=== PATIENT | male | born 1955 | race Caucasian/White ===

== ENCOUNTER 2018-11-18 13:18 | Emergency (ER) | payer BC ==
[2018-11-18 13:24] VITALS: TEMP 97.7
[2018-11-18] MEDS ORDERED: KETOROLAC 60 MG/2 ML VIAL IM STA (13:54)
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
--- NOTE | 2018-11-18 14:43 | XR ---
EXAMINATION TYPE: XR thoracic spine complete DATE OF EXAM: 11/18/2018 COMPARISON: 11/30/2017 HISTORY: Back pain TECHNIQUE: 4 views FINDINGS: There is osteopenia. There is some compression deformity of multiple thoracic vertebra. The re is 50% wedging of L1. There is 30% wedging of T12. There is 30% wedging of T9 and 50% wedging T8 a nd T7. There is slight loss of height of other thoracic vertebra as well. There is 30% wedging of T4. There is no paraspinal mass. Posterior elements are intact. IMPRESSION: Multiple osteoporotic type compression fractures show significant progression compared to old chest x-ray.
--- NOTE | 2018-11-18 14:46 | XR ---
EXAMINATION TYPE: XR chest 2V DATE OF EXAM: 11/18/2018 COMPARISON: 11/30/2017 HISTORY: Altered mental status TECHNIQUE: Frontal and lateral views of the chest are obtained. FINDINGS: There is no heart failure nor confluent pneumonic infiltrate. There is a 1 cm irregular po melvin marginated density in the lateral right upper lobe. There are no hilar masses. Costophrenic angl es are clear. There are multiple thoracic compression fractures. These show progression compared to o ld exam. IMPRESSION: Possible new right upper lobe nodule compared to old exam. Thoracic compression fracture s.
[2018-11-18 15:35] VITALS: BP 138/82; PULSE 72; RESP 18
== END 2018-11-18 15:33 | disposition home or self-care (01) ==
LOC: EC 13:18
DX: S22.009A Unspecified fracture of unspecified thoracic vertebra, initial encounter for closed fracture (principal); F17.200 Nicotine dependence, unspecified, uncomplicated; Z86.73 Personal history of transient ischemic attack (TIA), and cerebral infarction without residual deficits
CPT/HCPCS: 72072; 71046; 99284; 96372; J1885

== ENCOUNTER 2021-08-16 19:41 | Emergency (ER) | payer MEDICARE, OTHER ==
[2021-08-16 19:50] VITALS: RESP 18; TEMP 99.1
[2021-08-16] MEDS ORDERED: LORazepam 2 MG/ML INJ IV STA (20:14)
[2021-08-16] MEDS ORDERED: SODIUM CHLORIDE 0.9% 500 ML 500 ML IV STA (20:14)
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
[2021-08-16 20:40] LABS: Basophils # (A) 0.1 k/uL (0-0.2); Basophils % (A) 2 %; Eosinophils # (A) 0.1 k/uL (0-0.7); Eosinophils % (A) 1 %; HCT 52.8 % (39.0-53.0); Lymphocytes # (A) 0.9 k/uL (1.0-4.8); Lymphocytes % (A) 15 %; MCH 31.7 pg (25.0-35.0); MCHC 32.1 g/dL (31.0-37.0); MCV 98.7 fL (80.0-100.0); Mean Platelet Volume 9.2; Monocytes # (A) 0.3 k/uL (0-1.0); Monocytes % (A) 5 %; Neutrophils # (A) 4.3 k/uL (1.3-7.7); Neutrophils % (A) 73 %; Platelet Count 198 k/uL (150-450); RBC 5.35 m/uL (4.30-5.90); WBC 5.9 k/uL (3.8-10.6)
[2021-08-16 20:51] LABS: AST 30 U/L (17-59); African American GFR (CKD) >90 (>60 ml/min/1.73 sqM); Albumin 4.2 g/dL (3.5-5.0); Alcohol <10 mg/dL; Alkaline Phosphatase 43 U/L (38-126); Anion Gap 14 mmol/L; Blood Urea Nitrogen 22 mg/dL (9-20); Calcium 8.6 mg/dL (8.4-10.2); Carbon Dioxide 17 mmol/L (22-30); Chloride 101 mmol/L (98-107); Glucose 130 mg/dL (74-99); Magnesium 2.3 mg/dL (1.6-2.3); Non-African American GFR(CKD) >90 (>60 ml/min/1.73 sqM); Potassium 4.1 mmol/L (3.5-5.1); Sodium 132 mmol/L (137-145); Total Bilirubin 0.6 mg/dL (0.2-1.3); Total Protein 6.7 g/dL (6.3-8.2)
[2021-08-16 20:56] LABS: ALT 32 U/L (4-49)
--- NOTE | 2021-08-16 21:23 | XR ---
EXAMINATION TYPE: XR chest 1V portable DATE OF EXAM: 08/16/2021 8:51 PM COMPARISON: Chest radiographs from 02/14/2019. TECHNIQUE: XR chest 1V portable Frontal view of the chest. CLINICAL INDICATION:Male, 66 years old with history of Seizure activity; FINDINGS: Lungs/Pleura: There is flattening of the diaphragm with increased lucency of the lungs. No evidence o f pneumothorax, pleural effusion or focal consolidation. Pulmonary vascularity: Unremarkable. Heart/mediastinum: Cardiomediastinal silhouette is unremarkable. Musculoskeletal: No acute osseous pathology. IMPRESSION: 1. No acute cardiopulmonary disease process. 2. COPD changes.
--- NOTE | 2021-08-16 22:04 | CT ---
EXAMINATION TYPE: CT brain wo con CT DLP: 1129.4 mGycm, Automated exposure control for dose reduction was used. DATE OF EXAM: 08/16/2021 9:41 PM COMPARISON: Prior CT Brain from 11/30/2017. CLINICAL INDICATION:Male, 66 years old with history of seizure activity TECHNIQUE: Brain: Multiple axial CT images of the brain were obtained without IV contrast. FINDINGS: Brain: Extra-axial spaces: No abnormal extra-axial fluid collections. Ventricular system: Within normal limits Cerebral parenchyma: No acute intraparenchymal hemorrhage or mass effect. The north-white junction is well differentiated. Cerebellum: Unremarkable. Mass effect: No evidence of midline shift. Intracranial vasculature: unremarkable Soft tissues: Normal. Calvarium/osseous structures: No depressed skull fracture. There is an enlarged incisive foramen of t he hard palate. Paranasal sinuses and mastoid air cells: Mild scattered paranasal sinus disease. Visualized orbits: Orbital contents are intact. IMPRESSION: No acute intracranial process.
[2021-08-16 22:22] VITALS: BP 124/68; PULSE 98
[2021-08-16 22:22] LABS: Amphetamine Screen,Urine Not Detected (NotDetected); Barbiturate Screen,Urine Not Detected (NotDetected); Benzodiazepines Screen,Urine Not Detected (NotDetected); Cocaine Screen,Urine Not Detected (NotDetected); Methadone Screen, Urine Not Detected (NotDetected); Opiate Screen,Urine Detected (NotDetected); Oxycodone Screen, Urine Not Detected (NotDetected); Phencyclidine Screen,Urine Not Detected (NotDetected); Tricyclic Antidepressant,Urine Not Detected (NotDetected); Urn Cannabinoid Scrn Detected (NotDetected)
[2021-08-16 22:23] LABS: Appearance,Urine Clear (Clear); Bacteria,Urine Rare /hpf; Bilirubin,Urine Negative (Negative); Blood,Urine Trace (Negative); Color,Urine Yellow; Glucose,Urine (UA) Negative (Negative); Hyaline Casts,Urine 1 /lpf (0-2); Ketones,Urine Trace (Negative); Leukocyte Esterase,Urine Negative (Negative); Mucus,Urine Rare /hpf; Nitrite,Urine Negative (Negative); Protein,Urine 1+ (Negative); RBC,Urine 1 /hpf (0-5); Specific Gravity,Urine 1.022 (1.001-1.035); Urobilinogen,Urine <2.0 mg/dL (<2.0); WBC,Urine 1 /hpf (0-5)
== END 2021-08-16 23:10 | disposition home or self-care (01) ==
LOC: EC 19:41
DX: R56.9 Unspecified convulsions (principal); Z20.822 Contact with and (suspected) exposure to COVID-19
CPT/HCPCS: 36415; 93005; 80053; 83735; 84484; 85025; 81001; 80306; 87502; 87635; 71045; 70450; 99285; 96374; G0480; J2060; 80320

== ENCOUNTER 2022-06-27 04:33 | Emergency (ER) | payer OTHER ==
[2022-06-27 04:43] VITALS: RESP 16; TEMP 97.1
[2022-06-27] MEDS ORDERED: SODIUM CHLORIDE 0.9% 1,000 ML IV STA (04:50)
[2022-06-27] MEDS ORDERED: levETIRAcetam IV 2,000 MG in SALINE 1 100ML.BAG IVPB STA (04:50)
[2022-06-27] MEDS ORDERED: levETIRAcetam IV 2,000 MG in SODIUM CHLORIDE 0.9% 250 ML IVPB STA (04:54)
[2022-06-27 04:55] LABS: Glucose,Whole Blood 136 mg/dL (70-110)
[2022-06-27 05:20] LABS: African American GFR (CKD) >90 (>60 ml/min/1.73 sqM); Alcohol <10 mg/dL; Anion Gap 15 mmol/L; Blood Urea Nitrogen 18 mg/dL (9-20); Calcium 8.1 mg/dL (8.4-10.2); Carbon Dioxide 13 mmol/L (22-30); Chloride 108 mmol/L (98-107); Glucose 140 mg/dL (74-99); Non-African American GFR(CKD) >90 (>60 ml/min/1.73 sqM); Sodium 136 mmol/L (137-145)
[2022-06-27 05:26] LABS: Valproic Acid (Depakene) 66.7 ug/mL
--- NOTE | 2022-06-27 05:26 | CT ---
EXAMINATION TYPE: CT brain wo con DATE OF EXAM: 06/27/2022 COMPARISON: 08/16/2021 HISTORY: Seizure CT DLP: 1231.6 mGycm Automated exposure control for dose reduction was used. Ventricles have normal size. There is no mass effect or midline shift. No sign of intracranial hemorr dell. The calvarium is intact. No evidence of cerebral edema. IMPRESSION: Negative unenhanced head CT scan. No change
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
[2022-06-27 06:08] LABS: Basophils % (A) 1 %; Eosinophils # (A) 0.4 k/uL (0-0.7); Eosinophils % (A) 6 %; HCT 47.3 % (39.0-53.0); Lymphocytes # (A) 1.8 k/uL (1.0-4.8); Lymphocytes % (A) 28 %; MCH 33.7 pg (25.0-35.0); MCHC 33.9 g/dL (31.0-37.0); MCV 99.6 fL (80.0-100.0); Mean Platelet Volume 10.6; Monocytes # (A) 0.6 k/uL (0-1.0); Monocytes % (A) 10 %; Neutrophils # (A) 3.2 k/uL (1.3-7.7); Neutrophils % (A) 51 %; Platelet Count 172 k/uL (150-450); RBC 4.74 m/uL (4.30-5.90); RDW 13.3 % (11.5-15.5); WBC 6.2 k/uL (3.8-10.6)
[2022-06-27 07:07] VITALS: BP 109/76; PULSE 93
== END 2022-06-27 07:46 | disposition home or self-care (01) ==
LOC: EC 04:33
DX: G40.89 Other seizures (principal)
CPT/HCPCS: 36415; 93005; 80164; 80048; 83735; 85025; 70450; 99285; 96365; 96361; G0480; J1953; 80320

== ENCOUNTER → 2023-12-13 | Outpatient (CLI) | payer MEDICARE | END | disposition home or self-care (01) | LOC: LABWHC1 09:23 | PROVIDERS: ATTEND Psychiatry & Neurology Neurology | DX: R56.9 Unspecified convulsions (principal); Z79.899 Other long term (current) drug therapy | CPT/HCPCS: 36415; 80164 ==

== ENCOUNTER → 2024-06-07 | Outpatient (CLI) | payer MEDICARE ==
[2024-06-07 15:32] LABS: Basophils # (A) 0.05 X 10*3/uL (0.00-0.10); Basophils % (A) 0.8 %; Eosinophils # (A) 0.27 X 10*3/uL (0.04-0.35); Eosinophils % (A) 4.2 %; HCT 46.1 % (39.6-50.0); HGB 15.3 g/dL (13.0-17.0); Lymphocytes # (A) 1.78 X 10*3/uL (0.90-5.00); Lymphocytes % (A) 27.9 %; MCH 32.8 pg (27.0-32.0); MCHC 33.2 g/dL (32.0-37.0); MCV 98.9 FL (80.0-97.0); Mean Platelet Volume 12.5 FL (9.5-12.2); Monocytes # (A) 0.75 X 10*3/uL (0.20-1.00); Monocytes % (A) 11.8 %; NRBC Per 100 WBC 0 X 10*3/uL (0.00-0.01); Neutrophils # (A) 3.51 X 10*3/uL (1.80-7.70); Platelet Count 185 X 10*3/uL (140-440); RBC 4.66 X 10*6/uL (4.40-5.60); RDW 13.5 % (11.5-14.5); WBC 6.38 X 10*3/uL (4.50-10.00)
[2024-06-07 15:41] LABS: ALT 25 U/L (10-49); AST 28 U/L (14-35); Albumin 4.1 g/dL (3.8-4.9); Albumin/Globulin Ratio 1.58 Ratio (1.60-3.17); Alkaline Phosphatase 39 U/L (41-126); BUN/Creat Ratio 21.75 Ratio (12.00-20.00); Blood Urea Nitrogen 17.4 mg/dL (9.0-27.0); Calcium 9.2 mg/dL (8.7-10.3); Carbon Dioxide 25.3 mmol/L (21.6-31.8); Chloride 106 mmol/L (96-109); Chol/HDL Ratio 3.75 Ratio; Globulin 2.6 g/dL (1.6-3.3); Glucose 100 mg/dL (70-110); LDL Cholesterol,Calculated 106.4 mg/dL (0.0-131.0); Potassium 5.2 mmol/L (3.5-5.5); Sodium 142 mmol/L (135-145); Total Bilirubin 0.7 mg/dL (0.3-1.2); Total Protein 6.7 g/dL (6.2-8.2)
[2024-06-07 16:58] LABS: Valproic Acid (Depakene) 65.8 UG/ML (50.0-100.0)
== END | disposition home or self-care (01) ==
LOC: LABWHC1 09:13
PROVIDERS: ATTEND Psychiatry & Neurology Neurology
DX: E78.89 Other lipoprotein metabolism disorders (principal); R56.9 Unspecified convulsions; R97.20 Elevated prostate specific antigen [PSA]
CPT/HCPCS: 36415; 80053; 80061; 80164; 84153; 84443; 85025

== ENCOUNTER 2024-07-08 22:27 | Inpatient (IN) | payer MEDICARE, OTHER ==
[2024-07-08] MEDS: LORazepam 2 MG/ML INJ IV STA (22:34)
[2024-07-08] MEDS: MORPHINE SULFATE 2 MG/ML SYRINGE IVP STA (22:34)
[2024-07-08] MEDS: methylPREDNISolone SOD SUCCI 125 MG/2 ML VIAL IV STA (22:36)
[2024-07-08] MEDS: SODIUM CHLORIDE 0.9% 1,000 ML IV ONE (22:36)
[2024-07-08] MEDS: IPRATROPIUM 0.5 MG/2.5 ML NEBU INHALATION STA (22:41)
[2024-07-08] MEDS: ALBUTEROL NEBULIZED 2.5 MG/3 ML INHALATION STA (22:41)
[2024-07-08 22:52] LABS: Eosinophils # (A) 0.34 10*3/uL (0.04-0.35); Eosinophils % (A) 3.5 %; HCT 51.3 % (39.6-50.0); Lymphocytes # (A) 4.81 10*3/uL (0.90-5.00); Lymphocytes % (A) 49.7 %; MCH 33.1 pg (27.0-32.0); MCHC 33.1 g/dL (32.0-37.0); Mean Platelet Volume 11.3 fL (9.5-12.2); Monocytes # (A) 0.69 10*3/uL (0.20-1.00); Monocytes % (A) 7.1 %; Neutrophils # (A) 3.71 10*3/uL (1.80-7.70); Neutrophils % (A) 38.5 %; Platelet Count 225 10*3/uL (140-440); RBC 5.13 10*6/uL (4.40-5.60); RDW 13.8 % (11.5-14.5); WBC 9.67 10*3/uL (4.50-10.00)
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
--- NOTE | 2024-07-08 22:58 | XR ---
EXAMINATION TYPE: XR chest 1V portable DATE OF EXAM: 07/08/2024 10:49 PM COMPARISON: Chest radiographs from 08/16/2021 CLINICAL INDICATION: Male, 69 years old with history of sob; [facility] TECHNIQUE: XR chest 1V portable Frontal view of the chest. FINDINGS: Lungs/Pleura: Multifocal airspace opacities. No evidence of pneumothorax or pleural effusion. Pulmonary vascularity: Unremarkable. Heart/mediastinum: Cardiomediastinal silhouette is enlarged. Musculoskeletal: No acute osseous pathology. IMPRESSION: Multifocal airspace opacities concerning for pneumonia versus pulmonary vascular congestion correlate with serum BNP. [facility], , 07/08/2024 10:55 PM
[2024-07-08 23:20] LABS: INR 1.7 (<1.2); Partial Thromboplastin Time 26.4 sec (22.0-30.0); Prothrombin Time 17.2 sec (10.0-12.5)
[2024-07-09] MEDS: IPRATROPIUM-ALBUTEROL 3 ML NEB INHALATION STA (00:20)
[2024-07-09 00:24] LABS: RBC Morphology Normal
[2024-07-09 00:45] LABS: ALT 18 U/L (4-49); AST 27 U/L (17-59); African American GFR (CKD) >90 (>60 ml/min/1.73 sqM); Albumin 3.4 g/dL (3.5-5.0); Alkaline Phosphatase 37 U/L (38-126); Anion Gap 10 mmol/L; Blood Urea Nitrogen 24 mg/dL (9-20); Calcium 8.4 mg/dL (8.4-10.2); Carbon Dioxide 21 mmol/L (22-30); Chloride 108 mmol/L (98-107); Glucose 125 mg/dL (74-99); Non-African American GFR(CKD) 86 (>60 ml/min/1.73 sqM); Potassium 4.6 mmol/L (3.5-5.1); Sodium 139 mmol/L (137-145); Total Bilirubin 0.7 mg/dL (0.2-1.3); Total Protein 6.3 g/dL (6.3-8.2)
[2024-07-09 00:52] LABS: NT-Pro-B-Type Natriuretic Pept 6980 pg/mL
[2024-07-09] MEDS ORDERED: NALOXONE 0.4 MG/ML 1 ML VIAL IVP PRN (00:58)
[2024-07-09] MEDS ORDERED: IPRATROPIUM-ALBUTEROL 3 ML NEB INHALATION PRN (01:04)
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
[2024-07-09] MEDS: FUROSEMIDE 10 MG/ML 4 ML VIAL IV STA (03:34)
[2024-07-09 03:39] LABS: Influenza A Not Detected (Not Detectd); Influenza B Not Detected (Not Detectd); RSV Not Detected (Not Detectd)
[2024-07-09] MEDS: methylPREDNISolone SOD SUCCI 125 MG/2 ML VIAL IV SCH (06:13)
--- NOTE | 2024-07-09 07:10 | XR ---
EXAMINATION TYPE: XR chest 1V portable DATE OF EXAM: 07/09/2024 5:24 AM COMPARISON: None. CLINICAL INDICATION: Male, 69 years old with history of diffuse bilateral infiltrates, TECHNIQUE: XR chest 1V portable view(s) obtained. FINDINGS: The heart is normal in size on the current exam The pulmonary vasculature has diminished in prominence over the interval. Previous diffuse infiltrates have largely resolved. There is some moderate residual infiltrate at the left base. Small left pleural effusion and minimal right pleural effusions are present. IMPRESSION: 1. Correlate for resolving congestive heart failure. Mild residuals remaining. [facility], , 07/09/2024 7:07 AM
[2024-07-09] MEDS: BUDESONIDE 1 MG/2 ML NEBU INHALATION SCH (08:04)
[2024-07-09] MEDS: IPRATROPIUM-ALBUTEROL 3 ML NEB INHALATION SCH (08:04)
[2024-07-09] MEDS: FORMOTEROL FUMARATE 20 MCG/2 ML NEBU INHALATION SCH (08:04)
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
[2024-07-09] MEDS: AZITHROMYCIN 500 MG TAB PO SCH (09:23)
[2024-07-09] MEDS: FUROSEMIDE 10 MG/ML 4 ML VIAL IV SCH (09:23)
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
[2024-07-09] MEDS: DAPAGLIFLOZIN PROPANEDIOL 10 MG TABLET PO SCH (14:45)
[2024-07-09] MEDS: TAMSULOSIN 0.4 MG CAP.ER.24H PO SCH (17:47)
[2024-07-09 19:52] LABS: Glucose,Whole Blood 196 mg/dL (70-110)
[2024-07-10 05:57] LABS: Glucose,Whole Blood 137 mg/dL (70-110)
--- NOTE | 2024-07-10 06:39 | CA ---
Transthoracic Echo Report Name: Jas Escobar Age: 69 Gender: M : 1955 Exam Date: 07/09/2024 08:25 Exam Location: [facility] Ht (in): 71 Wt (lb): 130 Ordering Physician: Tan North Attending/Referring Phys: Brass Buffer Shelby Garcias RDCS Procedure CPT: Indications: evaluate LV function Cardiac Hx: CVA Technical Quality: Good Contrast 1: Definity Total Dose (mL): 2 Contrast 2: Total Dose (mL): MEASUREMENTS (Male / Female) Normal Values 2D ECHO LV Diastolic Diameter PLAX 5.6 cm 4.2 - 5.9 / 3.9 - 5.3 cm LV Systolic Diameter PLAX 5.1 cm IVS Diastolic Thickness 0.7 cm 0.6 - 1.0 / 0.6 - 0.9 cm LVPW Diastolic Thickness 0.8 cm 0.6 - 1.0 / 0.6 - 0.9 cm LV Relative Wall Thickness 0.3 RV Internal Dim ED PLAX 3.2 cm LVOT Diameter 1.9 cm LA Systolic Diameter LX 4.8 cm 3.0 - 4.0 / 2.7 - 3.8 cm LV Diastolic Volume MOD BP 177.8 cm??? 67 - 155 / 56 - 104 cm??? LV Systolic Volume MOD BP 116.0 cm??? 22 - 58 / 19 - 49 cm??? LV Ejection Fraction MOD BP 34.8 % >= 55 % LV Diastolic Volume MOD 4C 179.7 cm??? LV Systolic Volume MOD 4C 109.3 cm??? LV Ejection Fraction MOD 4C 39.2 % LV Diastolic Length 4C 9.1 cm LV Systolic Length 4C 8.4 cm LV Diastolic Volume MOD 2C 172.9 cm??? LV Systolic Volume MOD 2C 119.8 cm??? LV Ejection Fraction MOD 2C 30.7 % LV Diastolic Length 2C 8.9 cm LV Systolic Length 2C 8.1 cm LA Volume 70.5 cm??? 18 - 58 / 22 - 52 cm??? LA Volume Index 41.4 cm???/m??? 16 - 28 cm???/m??? DOPPLER MV Area PHT 5.4 cm??? MR Peak Velocity 449.7 cm/s MR Peak Gradient 80.9 mmHg Mitral E Point Velocity 42.0 cm/s Mitral A Point Velocity 70.4 cm/s Mitral E to A Ratio 0.6 MV Deceleration Time 139.3 ms FINDINGS Left Ventricle Left ventricular ejection fraction is estimated at 35 %. Mildly increased left ventricular diastolic volume. Severely increased left ventricular systolic volume. Moderately decreased left ventricular ejection fraction. Moderately reduced global left ventricular systolic function. Right Ventricle Normal right ventricular size and function. Unable to estimate the right ventricular systolic pressure. Right Atrium Normal right atrial size. Left Atrium Moderately increased left atrial diameter. Moderately increased left atrial volume. Mitral Valve Mitral valve thickened. No mitral stenosis. Mild to moderate mitral regurgitation. Aortic Valve Trileaflet aortic valve. No aortic stenosis. No aortic regurgitation. Tricuspid Valve Structurally normal tricuspid valve. No tricuspid stenosis. No tricuspid regurgitation. Pulmonic Valve Pulmonic valve not well visualized. No pulmonic stenosis. No pulmonic regurgitation. Pericardium Minimal pericardial effusion (normal variant). Aorta CONCLUSIONS Impaired LV function with EF 35% Mild to moderate MR Trace pericardial effusion Previewed by: Dr. Mark Dean MD (Electronically Signed) Final Date: 10 July 2024 06:38
[2024-07-10 06:41] LABS: Basophils # (A) 0.01 10*3/uL (0.00-0.10); Basophils % (A) 0.1 %; HCT 42.1 % (39.6-50.0); HGB 14.7 g/dL (13.0-17.0); Lymphocytes # (A) 0.63 10*3/uL (0.90-5.00); Lymphocytes % (A) 5.4 %; MCH 33.6 pg (27.0-32.0); MCHC 34.9 g/dL (32.0-37.0); MCV 96.3 fL (80.0-97.0); Mean Platelet Volume 10.9 fL (9.5-12.2); Monocytes # (A) 0.37 10*3/uL (0.20-1.00); Monocytes % (A) 3.1 %; Neutrophils # (A) 10.67 10*3/uL (1.80-7.70); Neutrophils % (A) 90.8 %; Platelet Count 205 10*3/uL (140-440); RBC 4.37 10*6/uL (4.40-5.60); WBC 11.75 10*3/uL (4.50-10.00)
[2024-07-10 07:07] LABS: African American GFR (CKD) >90 (>60 ml/min/1.73 sqM); Anion Gap 12 mmol/L; Blood Urea Nitrogen 34 mg/dL (9-20); Calcium 9.5 mg/dL (8.4-10.2); Carbon Dioxide 25 mmol/L (22-30); Chloride 100 mmol/L (98-107); Glucose 134 mg/dL (74-99); Non-African American GFR(CKD) 84 (>60 ml/min/1.73 sqM); Potassium 3.8 mmol/L (3.5-5.1); Sodium 137 mmol/L (137-145)
--- NOTE | 2024-07-10 10:23 | P.PN ---
Subjective This is a pleasant 60 years old male with past medical history of multiple medical problems including COPD. He presents because of dyspnea for 3 days duration patient with no chest pain with no coughing or phlegm No specific GI/ symptom. No headache dizziness weakness numbness Patient is complaining however from dysuria. He has diarrhea for 2 days. He is currently on BiPAP with a settings of 03/11 with FiO2 of 30%. 07/10 Patient feels much better today His tachypnea is minimal, no significant wheezing or crepitation on exam. No leg edema. He is saturating 100% on 4 L. Discussed with the staff to lower his oxygen supply. He is kept on IV Solu-Medrol 60 mg, IV Lasix 40 mg twice daily. WBC is 9.4 came up to 11.7 while on steroids. Hemoglobin 17 down to 14.7. INR 1.7 yesterday. Elevated troponin were negative x 3. proBNP is elevated. 2100, which is improving significantly from yesterday 6980. 4Calcitonin is negative at 0.08. Possible discharge 24-40 colonoscopy as per cardiology and pulmonary service Objective - Vital Signs Vital signs: Vital Signs Temp 97.5 F L 07/10/24 07:46 Pulse 96 07/10/24 08:40 Resp 16 07/10/24 07:46 BP 101/61 07/10/24 07:46 Pulse Ox 100 07/10/24 08:17 FiO2 60 07/09/24 15:35 Intake & Output 07/09/24 07/10/24 07/10/24 18:59 06:59 18:59 Intake Total 358 Output Total 2200 1400 Balance -2199 -1399 358 Weight 58.967 kg 55.3 kg Intake: Oral 358 Output: Urine 2200 1400 Other: Voiding Method Indwelling Catheter Indwelling Catheter Indwelling Catheter - Exam GENERAL: The patient is alert and oriented x3, not in any acute distress. Well developed, well nourished. HEENT: Pupils are round and equally reacting to light. EOMI. No scleral icterus. No conjunctival pallor. Normocephalic, atraumatic. No pharyngeal erythema. No thyromegaly. CARDIOVASCULAR: S1 and S2 present. No murmurs, rubs, or gallops. PULMONARY: Chest is clear to auscultation, no wheezing , no crackles. ABDOMEN: Soft, nontender, nondistended, normoactive bowel sounds. No palpable organomegaly. MUSCULOSKELETAL: No joint swelling or deformity. EXTREMITIES: No cyanosis, clubbing, or pedal edema. NEUROLOGICAL: Gross neurological examination did not reveal any focal deficits. SKIN: No rashes. no petechiae. - Labs CBC & Chem 7: 07/10/24 06:25 07/10/24 06:25 Labs: Abnormal Lab Results - Last 24 Hours (Table) 07/09/24 07/10/24 07/10/24 Range/Units 19:50 05:53 06:25 WBC (4.50-10.00) 10*3/uL RBC (4.40-5.60) 10*6/uL MCH (27.0-32.0) pg Immature Gran # (0.00-0.04) 10*3/uL Neutrophils # (1.80-7.70) 10*3/uL Lymphocytes # (0.90-5.00) 10*3/uL Eosinophils # (0.04-0.35) 10*3/uL BUN 34 H (9-20) mg/dL Glucose 134 H (74-99) mg/dL POC Glucose (mg/dL) 196 H 137 H (70-110) mg/dL 07/10/24 Range/Units 06:25 WBC 11.75 H (4.50-10.00) 10*3/uL RBC 4.37 L (4.40-5.60) 10*6/uL MCH 33.6 H (27.0-32.0) pg Immature Gran # 0.07 H (0.00-0.04) 10*3/uL Neutrophils # 10.67 H (1.80-7.70) 10*3/uL Lymphocytes # 0.63 L (0.90-5.00) 10*3/uL Eosinophils # 0.00 L (0.04-0.35) 10*3/uL BUN (9-20) mg/dL Glucose (74-99) mg/dL POC Glucose (mg/dL) (70-110) mg/dL Assessment and Plan Assessment: Acute CHF, unknown ejection fraction Mild acute COPD exacerbation Acute hypoxic respiratory failure secondary to above Acute urinary retention status post Bonilla catheter placed in the emergency room Plan: Continue with IV Lasix Continue with IV Solu-Medrol DC antibiotics ceftriaxone. Continue Zithromax for COPD treatment Bronchodilator Pulmonary consult Cards team consult Labs and medication were reviewed.. Continue same treatment. Continue with symptomatic treatment. Resume home medication. Monitor labs and vitals. DVT and GI prophylaxis. Further recommendations as per clinical course of the patient DVT prophylaxis: Subcutaneous heparin GI Prophylaxis: Pepcid Prognosis is guarded
[2024-07-10 11:07] LABS: Glucose,Whole Blood 140 mg/dL (70-110)
[2024-07-10] MEDS ORDERED: ALPRAZolam 0.25 MG TAB PO PRN (12:04)
[2024-07-10] MEDS ORDERED: ALPRAZolam 0.5 MG TAB PO PRN (12:04)
[2024-07-10] MEDS ORDERED: NITROGLYCERIN SL TABS 0.4 MG TAB SUBLINGUAL PRN (12:04)
--- NOTE | 2024-07-10 12:14 | P.PN ---
Subjective Progress Note Date: 07/10/24 History of Present Illness: The patient is a 69-year-old male with a known history of chronic obstructive lung disease, history of seizure and a prior history of smoking which he stopped about a year and a half ago who presented with worsening dyspnea, cough that got worse over the last 24 hours, quite severe and he felt dizzy. He had some chest discomfort that was worse with deep breathing and coughing. He came into the emergency room, severely dyspneic requiring BiPAP and his chest x-ray showed bi lateral infiltrate. He was in sinus mechanism. He feels better at the time of my evaluation. He denies any peripheral edema, PND or orthopnea. He denies any prior history of cardiac ischemia or CHF. His NT proBNP was elevated on presentation. Prior systolic function evaluation from 2018 showed a preserved systolic function. He had mild troponin elevation. Medications: Depakote Labs: Potassium 4.6, BUN 24, creatinine 0.92. Hemoglobin 17. NT proBNP 6980. Procalcitonin 0.08. Troponin 0.043, 0.046, 0.045. WBC 9.67. Chest x-ray with multifocal airspace, pneumonia versus congestion., Repeat chest x-ray shows improvement. EKG: Sinus mechanism rate of 101 occasional PVCs with nonspecific ST-T wave changes 07/10 Patient seen and examined on the on the cardiac stepdown unit. Patient denies chest pain, shortness of breath is improving and he is followed by pulmonary medicine. Blood pressure 101/45, pulse ox 94% on room air, heart rate 96-100. Repeat blood work reveals WBC 11.7, hemoglobin 14.7, potassium 3.8, BUN 34 creatinine 0.94. proBNP 2100. Echocardiogram reveals EF of 35%, mild to moderate MR, trace pericardial effusion. Results of the echocardiogram reviewed with the patient with recommendations for cardiac catheterization. Patient is agreeable to move forward with this and will be scheduled tomorrow. Physical Examination: 69-year-old male on BiPAP, feeling better,Blood pressure 105/70, Heart rate 90 Head: Normocephalic. Eyes: Sclerae nonicteric. Neck: Good carotid upstroke, no bruit, no jugular venous distention. Lungs: Decreased breath sounds bilaterally, no wheezes Heart: Regular rate and rhythm, S1-S2, no S3, no rub. No murmur. Abdomen: Soft nontender, positive bowel sounds no organomegaly. Extremities: No edema, intact distal pulses. Impression: 1. Progressive dyspnea with probably exacerbation of COPD and fluid overload, baseline EF was normal in 2018 2. Mild troponin elevation, most likely type II myocardial infarction 3. Prior history of smoking 4. History of seizure 5. Cardiomyopathy with EF 35% unknown if ischemic or nonischemic Plan: 1. Treatment of COPD per pulmonary service 2. Transition IV Lasix to oral 40 mg daily 3. Continue Farxiga 4. Follow renal functions 5. Schedule patient for cardiac catheterization tomorrow with Dr. Gómez. N.p.o. after midnight. Nurse practitioner note has been reviewed, I agree with documented findings and plan of care. Patient was seen and examined. Objective - Vital Signs Vital signs: Vital Signs Temp 97.5 F L 07/10/24 07:46 Pulse 96 07/10/24 08:40 Resp 16 07/10/24 07:46 BP 101/61 07/10/24 07:46 Pulse Ox 100 07/10/24 08:17 FiO2 60 07/09/24 15:35 Intake & Output 07/09/24 07/10/24 07/10/24 18:59 06:59 18:59 Intake Total 358 Output Total 2200 1400 Balance -2200 -1400 358 Weight 58.967 kg 55.3 kg Intake: Oral 358 Output: Urine 2200 1400 Other: Voiding Method Indwelling Catheter Indwelling Catheter Indwelling Catheter - Labs CBC & Chem 7: 07/10/24 06:25 07/10/24 06:25 Labs: Abnormal Lab Results - Last 24 Hours (Table) 07/09/24 07/10/24 07/10/24 Range/Units 19:50 05:53 06:25 WBC (4.50-10.00) 10*3/uL RBC (4.40-5.60) 10*6/uL MCH (27.0-32.0) pg Immature Gran # (0.00-0.04) 10*3/uL Neutrophils # (1.80-7.70) 10*3/uL Lymphocytes # (0.90-5.00) 10*3/uL Eosinophils # (0.04-0.35) 10*3/uL BUN 34 H (9-20) mg/dL Glucose 134 H (74-99) mg/dL POC Glucose (mg/dL) 196 H 137 H (70-110) mg/dL 07/10/24 07/10/24 Range/Units 06:25 11:05 WBC 11.75 H (4.50-10.00) 10*3/uL RBC 4.37 L (4.40-5.60) 10*6/uL MCH 33.6 H (27.0-32.0) pg Immature Gran # 0.07 H (0.00-0.04) 10*3/uL Neutrophils # 10.67 H (1.80-7.70) 10*3/uL Lymphocytes # 0.63 L (0.90-5.00) 10*3/uL Eosinophils # 0.00 L (0.04-0.35) 10*3/uL BUN (9-20) mg/dL Glucose (74-99) mg/dL POC Glucose (mg/dL) 140 H (70-110) mg/dL
[2024-07-10] MEDS: METOPROLOL SUCCINATE (ER) 25 MG TAB.ER.24H PO SCH (12:48)
[2024-07-10] MEDS: ASPIRIN 81 MG PO SCH (12:48)
[2024-07-10 13:25] VITALS: BMI 17.4
[2024-07-10 16:15] LABS: Glucose,Whole Blood 119 mg/dL (70-110)
--- NOTE | 2024-07-10 16:38 | P.PN ---
Subjective Progress Note Date: 07/10/24 Principal diagnosis: Acute systolic congestive heart failure and acute exacerbation of COPD Patient is a 69-year-old male with past medical history significant for seizure disorder, COPD, Legionella pneumonia, and former tobacco dependence. Presented to the emergency department late last night in a state of severe respiratory distress. Placed on BiPAP. Workup in the ED including a chest x-ray showing diffuse bilateral pulmonary infiltrates, concerning for pneumonia versus pulmonary edema. CBC: WBC count 10, hemoglobin 17, platelets 225. CMP: Sodium 139, potassium 4.6, chloride 108, serum bicarb 21, BUN 24, creatinine 0.92, glucose 125. LFTs not elevated. Troponin elevated at 0.043. EKG: Sinus tachycardia, rate 101 bpm, nonspecific ST and T wave abnormalities. NT proBNP significantly elevated at 6980. Most recent available echocardiogram from 2018 showing a preserved left ventricular ejection fraction of 55%. Patient currently being evaluated emergency department, trauma bay 1. He remains on BiPAP with settings 10/5 and FiO2 100%. SpO2 reading 96% on bedside monitor. Patient appears nondistressed. No signs of CO2 narcosis. Reports increased work of breathing that developed over the last 24 to 48 hours. This occurs especially with any kind of exertion. Reports previous episodes of substernal nonradiating chest pain on exertion, but not currently. Associated productive cough. Denies any hemoptysis, fevers, or sick contacts. Endorses history of COPD. Previous heavy tobacco dependence, however, quit approximately 1-1/2 years ago. Continues to smoke marijuana. Afebrile. Received empiric dose of antibiotics in the ED including Rocephin and azithromycin. Current vital signs: Temperature 97.2 F, heart rate 99 bpm, blood pressure 128/70 mmHg, nontachypneic, SpO2 recorded at 96% on above-mentioned BiPAP settings. Patient is doing well today, seen on 07/10/2024, feeling better, breathing easier, he is actually on room air, remains on bronchodilators, remains on Lasix IV Lasix 40 mg daily patient is also on farxiga as per cardiology, scheduled to undergo cardiac catheterization tomorrow by Dr. Gómez, in the meantime he is n.p.o. after midnight. Objective - Vital Signs Vital signs: Vital Signs Temp 97.7 F 07/10/24 16:00 Pulse 95 07/10/24 16:14 Resp 16 04/09/25 16:00 BP 116/68 07/10/24 16:00 Pulse Ox 94 L 07/10/24 16:00 FiO2 60 07/09/24 15:35 Intake & Output 07/09/24 07/10/24 07/10/24 18:59 06:59 18:59 Intake Total 898 Output Total 2200 1400 900 Balance -2200 -1400 -2 Weight 58.967 kg 55.3 kg 55.3 kg Intake: Oral 898 Output: Urine 2200 1400 900 Uretheral (Bonilla) 450 Other: Voiding Method Indwelling Catheter Indwelling Catheter Indwelling Catheter # Voids 2 - Exam GENERAL EXAM: Reveals 69-year-old white male on room air in no distress HEAD: Normocephalic and atraumatic EYES: Normal reaction of pupils, equal size. NOSE: Clear with pink turbinates. THROAT: No erythema or exudates. NECK: No masses, no JVD. CHEST: No chest wall deformity. LUNGS: Diminished breath sound bilaterally no crackles rhonchi or wheezes CVS: S1 and S2 normal with no audible murmur, regular rhythm. No extra heart sounds ABDOMEN: No hepatosplenomegaly, active bowel sounds, no guarding or rigidity. SKIN: No rashes CENTRAL NERVOUS SYSTEM: Alert and oriented x 3 no gross focal deficit EXTREMITIES: No clubbing edema or cyanosis - Labs CBC & Chem 7: 07/10/24 06:25 07/10/24 06:25 Labs: Abnormal Lab Results - Last 24 Hours (Table) 07/09/24 07/10/24 07/10/24 Range/Units 19:50 05:53 06:25 WBC (4.50-10.00) 10*3/uL RBC (4.40-5.60) 10*6/uL MCH (27.0-32.0) pg Immature Gran # (0.00-0.04) 10*3/uL Neutrophils # (1.80-7.70) 10*3/uL Lymphocytes # (0.90-5.00) 10*3/uL Eosinophils # (0.04-0.35) 10*3/uL BUN 34 H (9-20) mg/dL Glucose 134 H (74-99) mg/dL POC Glucose (mg/dL) 196 H 137 H (70-110) mg/dL 07/10/24 07/10/24 07/10/24 Range/Units 06:25 11:05 16:13 WBC 11.75 H (4.50-10.00) 10*3/uL RBC 4.37 L (4.40-5.60) 10*6/uL MCH 33.6 H (27.0-32.0) pg Immature Gran # 0.07 H (0.00-0.04) 10*3/uL Neutrophils # 10.67 H (1.80-7.70) 10*3/uL Lymphocytes # 0.63 L (0.90-5.00) 10*3/uL Eosinophils # 0.00 L (0.04-0.35) 10*3/uL BUN (9-20) mg/dL Glucose (74-99) mg/dL POC Glucose (mg/dL) 140 H 119 H (70-110) mg/dL Microbiology - Last 24 Hours (Table) 07/09/24 01:15 Blood Culture - Preliminary Blood Assessment and Plan Assessment: Impression: Acute hypoxemic respiratory failure, secondary to acute systolic congestive heart failure and acute exacerbation of COPD Acute exacerbation of COPD Elevated troponins, rule out non-ST elevation MIHistory of legionnaires disease Former tobacco dependence Marijuana smoker History of seizure disorder, last reported seizure over 4 years ago Recommendation: Continue diuretics Continue bronchodilators Agree with cardiac catheterization for further evaluation of his cardiomyopathy and LV dysfunction Will continue to follow Time with Patient: Less than 30
[2024-07-10] MEDS: ATORVASTATIN 40 MG TAB PO SCH (19:44)
[2024-07-10 20:12] LABS: Glucose,Whole Blood 142 mg/dL (70-110)
[2024-07-11 05:51] LABS: Glucose,Whole Blood 134 mg/dL (70-110)
[2024-07-11] MEDS: ASPIRIN 325 MG TAB PO ONE (06:23)
[2024-07-11] MEDS: ATORVASTATIN 80 MG TAB PO ONE (06:23)
[2024-07-11] MEDS: FUROSEMIDE 40 MG TAB PO SCH (08:20)
[2024-07-11] MEDS ORDERED: ONDANSETRON 4 MG/2 ML VIAL IVP PRN (09:40)
[2024-07-11] MEDS ORDERED: MORPHINE SULFATE 2 MG/ML SYRINGE IVP PRN (09:40)
[2024-07-11] MEDS ORDERED: IOPAMIDOL CONTRAST (ORAL USE) VIAL PO PRN (09:56)
--- NOTE | 2024-07-11 10:02 | P.PN ---
Subjective This is a pleasant 60 years old male with past medical history of multiple medical problems including COPD. He presents because of dyspnea for 3 days duration patient with no chest pain with no coughing or phlegm No specific GI/ symptom. No headache dizziness weakness numbness Patient is complaining however from dysuria. He has diarrhea for 2 days. He is currently on BiPAP with a settings of 03/11 with FiO2 of 30%. 07/11 Patient still mildly tachypneic but no chest pain Patient is going for cardiac cath today because troponin mildly elevated He is currently kept on IV Solu-Medrol 60 mg for his acute COPD and oral Lasix 40 mg once daily. He is saturating 91% on 2 L oxygen via nasal cannula Overnight started complaining from epigastric pain and tenderness and indigestion, his pain about 5/10 going to his chest. Also he had frequent bowel movement 3 this morning but states there is no diarrhea and they are normal. Labs from today are pending. Yesterday were unremarkable. Will order CT of the abdomen pelvis with oral contrast only as patient is going for cardiac cath and may need another contrast. Repeat labs and check lactic acid lipase and liver function test. Consider con surgery consult. Review of systems NEUROLOGICAL: No headaches, no weakness, no numbness. HEMATOLOGICAL: Denies any bleeding or petechiae. GENITOURINARY: Denies any burning micturition, frequency, or urgency. MUSCULOSKELETAL/RHEUMATOLOGICAL: Denies any joint pain, swelling, or any muscle pain. ENDOCRINE: Denies any polyuria or polydipsia. Active Medications Generic Name Dose Route Start Last Admin Trade Name Freq PRN Reason Stop Dose Admin Acetaminophen 650 mg 07/11/24 09:42 Acetaminophen Tab 325 Mg Tab PO Q4HR PRN Fever and/ or Pain Albuterol/Ipratropium 3 ml 07/09/24 08:00 07/11/24 08:29 Ipratropium-Albuterol 3 Ml Neb INHALATION 3 ml RT-QID LEDY Administration Albuterol/Ipratropium 3 ml 07/09/24 01:04 Ipratropium-Albuterol 3 Ml Neb INHALATION RT-Q2H PRN Shortness Of Breath Or Wheezing Alprazolam 0.25 mg 07/10/24 12:04 Alprazolam 0.25 Mg Tab PO Q6HR PRN Mild Anxiety Alprazolam 0.5 mg 07/10/24 12:04 Alprazolam 0.5 Mg Tab PO Q6HR PRN Moderate Anxiety Aspirin 81 mg 07/10/24 11:30 07/11/24 09:19 Aspirin 81 Mg PO Not Given DAILY LEDY Atorvastatin Calcium 40 mg 07/10/24 21:00 07/10/24 19:44 Atorvastatin 40 Mg Tab PO 40 mg HS LEDY Administration Budesonide 1 mg 07/09/24 08:00 07/11/24 08:29 Budesonide 1 Mg/2 Ml Nebu INHALATION 1 mg RT-BID LEDY Administration Calcium Carbonate/Glycine 750 mg 07/11/24 09:41 Calcium Carbonate 500 Mg Chewable PO QID PRN Heartburn Dapagliflozin 10 mg 07/09/24 11:45 07/11/24 08:20 Dapagliflozin Propanediol 10 Mg Tablet PO 10 mg DAILY LEDY Administration Formoterol Fumarate 20 mcg 07/09/24 08:00 07/11/24 08:29 Formoterol Fumarate 20 Mcg/2 Ml Nebu INHALATION 20 mcg RT-BID LEDY Administration Furosemide 40 mg 07/11/24 09:00 07/11/24 08:20 Furosemide 40 Mg Tab PO 40 mg DAILY LEDY Administration Heparin Sodium (Porcine) 10, 1,001 mls @ 999 mls/hr 07/11/24 07:00 000 unit/ Sodium Chloride IRRIGATION 07/11/24 23:00 ONCE PRN INTRA-OP Heparin Sodium (Porcine) 2,500 250.5 mls @ 250 mls/hr 07/11/24 07:00 unit/ Sodium Chloride IRRIGATION 07/11/24 23:00 ONCE PRN INTRA-OP Iopamidol 30 ml 07/11/24 09:53 Iopamidol Contrast (Oral Use) Vial PO 07/12/24 09:[address] Scan Iopamidol 30 ml 07/11/24 09:56 Iopamidol Contrast (Oral Use) Vial PO 07/12/24 09:[address] Scan Methylprednisolone Sodium Succinate 60 mg 07/09/24 06:00 07/11/24 06:23 Methylprednisolone Sod Succi 125 Mg/2 Ml Vial IV 60 mg Q6HR LEDY Administration Metoprolol Succinate 25 mg 07/10/24 11:30 07/11/24 08:20 Metoprolol Succinate (Er) 25 Mg Tab.Er.24h PO 25 mg DAILY LEDY Administration Morphine Sulfate 2 mg 07/11/24 09:40 Morphine Sulfate 2 Mg/Ml Syringe IVP Q4HR PRN Pain/Discomfort Naloxone HCl 0.2 mg 07/09/24 00:58 Naloxone 0.4 Mg/Ml 1 Ml Vial IVP Q2M PRN Opioid Reversal Nitroglycerin 0.4 mg 07/10/24 12:04 Nitroglycerin Sl Tabs 0.4 Mg Tab SUBLINGUAL Q5M PRN Chest Pain Ondansetron HCl 4 mg 07/11/24 09:40 Ondansetron 4 Mg/2 Ml Vial IVP Q6HR PRN Nausea And Vomiting Pantoprazole Sodium 40 mg 07/11/24 10:00 Pantoprazole 40 Mg/10 Ml Vial IVP BID LEDY Tamsulosin HCl 0.4 mg 07/09/24 18:30 07/10/24 17:36 Tamsulosin 0.4 Mg Cap.Er.24h PO 0.4 mg PC-SUPPER LEDY Administration Objective - Vital Signs Vital signs: Vital Signs Temp 97.7 F 07/11/24 08:00 Pulse 100 07/11/24 08:51 Resp 16 07/11/24 08:00 BP 128/83 07/11/24 08:00 Pulse Ox 91 L 07/11/24 08:29 FiO2 60 07/09/24 15:35 Intake & Output 07/10/24 07/11/24 07/11/24 18:59 06:59 18:59 Intake Total 898 240 20 Output Total 1100 200 Balance -202 40 20 Weight 55.3 kg 53.4 kg Intake: IV 20 Invasive Line 1 10 Invasive Line 2 10 Oral 898 240 Output: Urine 1100 200 Uretheral (Bonilla) 450 Other: Voiding Method Indwelling Catheter Toilet # Voids 2 - Exam GENERAL: The patient is alert and oriented x3, not in any acute distress. Well developed, well nourished. HEENT: Pupils are round and equally reacting to light. EOMI. No scleral icterus. No conjunctival pallor. Normocephalic, atraumatic. No pharyngeal erythema. No thyromegaly. CARDIOVASCULAR: S1 and S2 present. No murmurs, rubs, or gallops. -PULMONARY: Chest is clear to auscultation, n bilateral scattered wheezing , no crackles. -ABDOMEN: Soft, epigastric tenderness, nondistended, normoactive bowel sounds. No palpable organomegaly. MUSCULOSKELETAL: No joint swelling or deformity. EXTREMITIES: No cyanosis, clubbing, or pedal edema. NEUROLOGICAL: Gross neurological examination did not reveal any focal deficits. SKIN: No rashes. no petechiae. - Labs CBC & Chem 7: 07/10/24 06:25 07/10/24 06:25 Labs: Abnormal Lab Results - Last 24 Hours (Table) 07/10/24 07/10/24 07/10/24 Range/Units 11:05 16:13 20:09 POC Glucose (mg/dL) 140 H 119 H 142 H (70-110) mg/dL 07/11/24 Range/Units 05:46 POC Glucose (mg/dL) 134 H (70-110) mg/dL Microbiology - Last 24 Hours (Table) 07/09/24 01:15 Blood Culture - Preliminary Blood Assessment and Plan Assessment: Acute CHF, unknown ejection fraction acute COPD exacerbation Acute hypoxic respiratory failure secondary to above Epigastric pain and tenderness Acute urinary retention status post Bonilla catheter placed in the emergency room Plan: Continue with oral Lasix Continue with IV Solu-Medrol Continue Zithromax for COPD treatment Plan for cardiac cath on 07/[address] of the abdomen and surgery team consult Bronchodilator Pulmonary consult Cards team consult Labs and medication were reviewed.. Continue same treatment. Continue with symptomatic treatment. Resume home medication. Monitor labs and vitals. DVT and GI prophylaxis. Further recommendations as per clinical course of the patient DVT prophylaxis: heparin GI Prophylaxis: Protonix Prognosis is guarded
[2024-07-11] MEDS: ACETAMINOPHEN TAB 325 MG TAB PO PRN (10:11)
[2024-07-11] MEDS: CALCIUM CARBONATE 500 MG CHEWABLE PO PRN (10:12)
[2024-07-11] MEDS: PANTOPRAZOLE 40 MG/10 ML VIAL IVP SCH (10:13)
[2024-07-11] MEDS: SODIUM CHLORIDE 0.9% 1,000 ML IV ONE (10:48)
[2024-07-11] MEDS: HEPARIN SODIUM,PORCINE (1 ML) 2,500 UNIT in SODIUM CHLORIDE 0.9% 250 ML IRRIGATION PRN (10:49)
[2024-07-11] MEDS: HEPARIN SODIUM,PORCINE 10,000 UNIT in SODIUM CHLORIDE 0.9% 1,000 ML IRRIGATION PRN (10:49)
[2024-07-11] MEDS: fentaNYL (PF) 50 MCG/1 ML VIAL IVP ONE (10:50)
[2024-07-11] MEDS: MIDAZOLAM 2 MG/2 ML VIAL IVP ONE (10:50)
[2024-07-11] MEDS: LIDOCAINE 1% INJ 10MG/ML (20 ML MDV) SQ ONE (10:50)
[2024-07-11] MEDS: VERAPAMIL SYRINGE (5 MG/10 ML) INTRAARTER ONE (10:55)
[2024-07-11] MEDS: HEPARIN SODIUM 1,000 UN/ML (10ML VL) IVP ONE (10:56)
[2024-07-11] MEDS: IOPAMIDOL-370 100ML BTL INJ ONE ×2 (11:03→11:10)
[2024-07-11] MEDS ORDERED: RX INFO: IV CONTRAST WAS GIVEN 1 EACH MISC MISCELLANE PRN (11:19)
--- NOTE | 2024-07-11 11:26 | P.CARDCATH ---
Date of Procedure: 07/11/24 Description of Procedure: Cardiac Catheterization: The patient is a 69-year-old male with known history of COPD and prior history of smoking who presented with sudden onset of worsening dyspnea, mild troponin elevation and elevated NT proBNP. His EKG showed nonspecific changes but his echocardiogram showed moderate severe hypokinesis. Recommendations were made regarding cardiac catheterization, the risks and the complications were discussed with the patient who is in full understanding and agreement. 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 Using Xylocaine Anesthesia and modified Seldinger technique, a 6-Tristanian sheath was introduced in the right radial artery . Subsequently, selective coronary angiography was performed using a 5-Tristanian 3.5 bend Nakia catheter. Multiple views of the coronary artery including hemiaxial views were obtained. The 5 Tristanian pigtail catheter was used to cross the aortic valve and LVEDP was calculated. A 30 degree KOROMA view of the left ventricle was obtained following that, catheter and sheath were removed. Hemostasis was obtained with deployment of vascular band . There was no immediate complication. Patient was returned to room in stable condition. Of note, the patient received a total of 3000 units of intravenous heparin as well as intra-arterial verapamil. Findings: Left main: This is a large size vessel, bifurcating into LAD and left circumflex, left main has no obstructive disease LAD: This is a large size vessel, reaching to the apex, giving rise to 3 diagonal branch of moderate caliber, the LAD and its branches have no obstructive disease Left circumflex: This is a large size vessel, giving rise to 3 obtuse marginal branch the first 2 are large in caliber. The left circumflex and its branches have no obstructive disease RCA: This is a large dominant vessel, tortuous in the midsegment. It bifurcates distally to PDA and PLV, the RCA has no obstructive disease Left Ventriculogram: Performed in the 30 degree KOROMA view and revealed global hypokinesis, ejection fraction is estimated at 35 to 40%, there was 1+ mitral regurgitation Hemodynamics: There was no gradient across the aortic valve, LVEDP was 16-18 mmHg Conclusion: 1. Normal coronary arteries 2. Right dominance 3. Moderate severe global hypokinesis Recommendations: The patient cardiomyopathy is nonischemic, I will optimize his medical therapy and depending on his progress further recommendations will be made. The findings and the recommendations were discussed with the patient and he is in full understanding and agreement. Duration of sedation is 23 minutes.
[2024-07-11 11:32] LABS: Glucose,Whole Blood 107 mg/dL (70-110)
[2024-07-11 12:17] LABS: Basophils # (A) 0.01 10*3/uL (0.00-0.10); Basophils % (A) 0.1 %; HCT 42.9 % (39.6-50.0); HGB 14.5 g/dL (13.0-17.0); Lymphocytes # (A) 0.59 10*3/uL (0.90-5.00); Lymphocytes % (A) 4.9 %; MCHC 33.8 g/dL (32.0-37.0); MCV 97.5 fL (80.0-97.0); Mean Platelet Volume 11.1 fL (9.5-12.2); Monocytes # (A) 0.49 10*3/uL (0.20-1.00); Monocytes % (A) 4.1 %; Neutrophils # (A) 10.92 10*3/uL (1.80-7.70); Neutrophils % (A) 90.6 %; Platelet Count 209 10*3/uL (140-440); RDW 14.3 % (11.5-14.5); WBC 12.05 10*3/uL (4.50-10.00)
[2024-07-11] MEDS: SPIRONOLACTONE 25 MG TAB PO SCH (12:19)
[2024-07-11] MEDS: SODIUM CHLORIDE 0.9% 1,000 ML IV SCH (12:20)
[2024-07-11 12:32] LABS: African American GFR (CKD) >90 (>60 ml/min/1.73 sqM); Anion Gap 10 mmol/L; Blood Urea Nitrogen 43 mg/dL (9-20); Carbon Dioxide 27 mmol/L (22-30); Chloride 99 mmol/L (98-107); Glucose 120 mg/dL (74-99); Non-African American GFR(CKD) 85 (>60 ml/min/1.73 sqM); Potassium 3.8 mmol/L (3.5-5.1); Sodium 136 mmol/L (137-145)
[2024-07-11 12:33] LABS: ALT 20 U/L (4-49); AST 18 U/L (17-59); African American GFR (CKD) 86 (>60 ml/min/1.73 sqM); Albumin 3.7 g/dL (3.5-5.0); Alkaline Phosphatase 37 U/L (38-126); Anion Gap 7 mmol/L; Bilirubin, Delta 0.2 mg/dL (0.0-0.2); Bilirubin,Unconjugated 0.8 mg/dL (0.0-1.1); Blood Urea Nitrogen 42 mg/dL (9-20); Calcium 8.9 mg/dL (8.4-10.2); Carbon Dioxide 28 mmol/L (22-30); Chloride 101 mmol/L (98-107); Glucose 118 mg/dL (74-99); Lipase 192 U/L (23-300); Non-African American GFR(CKD) 74 (>60 ml/min/1.73 sqM); Potassium 3.7 mmol/L (3.5-5.1); Sodium 136 mmol/L (137-145); Total Protein 6.7 g/dL (6.3-8.2)
--- NOTE | 2024-07-11 13:49 | P.PN ---
Subjective Progress Note Date: 07/11/24 Principal diagnosis: Acute systolic congestive heart failure and acute exacerbation of COPD Patient is a 69-year-old male with past medical history significant for seizure disorder, COPD, Legionella pneumonia, and former tobacco dependence. Presented to the emergency department late last night in a state of severe respiratory distress. Placed on BiPAP. Workup in the ED including a chest x-ray showing diffuse bilateral pulmonary infiltrates, concerning for pneumonia versus pulmonary edema. CBC: WBC count 10, hemoglobin 17, platelets 225. CMP: Sodium 139, potassium 4.6, chloride 108, serum bicarb 21, BUN 24, creatinine 0.92, glucose 125. LFTs not elevated. Troponin elevated at 0.043. EKG: Sinus tachycardia, rate 101 bpm, nonspecific ST and T wave abnormalities. NT proBNP significantly elevated at 6980. Most recent available echocardiogram from 2018 showing a preserved left ventricular ejection fraction of 55%. Patient currently being evaluated emergency department, trauma bay 1. He remains on BiPAP with settings 10/5 and FiO2 100%. SpO2 reading 96% on bedside monitor. Patient appears nondistressed. No signs of CO2 narcosis. Reports increased work of breathing that developed over the last 24 to 48 hours. This occurs especially with any kind of exertion. Reports previous episodes of substernal nonradiating chest pain on exertion, but not currently. Associated productive cough. Denies any hemoptysis, fevers, or sick contacts. Endorses history of COPD. Previous heavy tobacco dependence, however, quit approximately 1-1/2 years ago. Continues to smoke marijuana. Afebrile. Received empiric dose of antibiotics in the ED including Rocephin and azithromycin. Current vital signs: Temperature 97.2 F, heart rate 99 bpm, blood pressure 128/70 mmHg, nontachypneic, SpO2 recorded at 96% on above-mentioned BiPAP settings. Patient is doing well today, seen on 07/10/2024, feeling better, breathing easier, he is actually on room air, remains on bronchodilators, remains on Lasix IV Lasix 40 mg daily patient is also on farxiga as per cardiology, scheduled to undergo cardiac catheterization tomorrow by Dr. Gómez, in the meantime he is n.p.o. after midnight. Patient was seen today on 07/11/2024, patient is doing well clinically except last night he had episodes of chest pain and the patient underwent cardiac catheterization today, he was found to have normal coronaries hence his symptoms of chest pain are not cardiac in nature, he was found to have moderate severe global hypokinesis. Hence his cardiomyopathy is not ischemic in nature, in the meantime he remains on diuretics for his initial presentation of congestive heart failure with drastic improvement noted on the chest x-ray with diuretics. He remains on diuretics Lasix 20 mg daily, remains on bronchodilators, and I am transitioning his methylprednisolone today to prednisone 50 mg daily for his underlying COPD. Objective - Vital Signs Vital signs: Vital Signs Temp 98 F 07/11/24 11:19 Pulse 90 07/11/24 13:02 Resp 16 07/11/24 11:19 BP 105/64 07/11/24 13:02 Pulse Ox 91 L 07/11/24 11:19 FiO2 60 07/09/24 15:35 Intake & Output 07/10/24 07/11/24 07/11/24 18:59 06:59 18:59 Intake Total 898 240 325 Output Total 1100 200 Balance -202 40 325 Weight 55.3 kg 53.4 kg Intake: IV 205 Invasive Line 1 10 Invasive Line 2 20 Oral 898 240 120 Output: Urine 1100 200 Uretheral (Bonilla) 450 Other: Voiding Method Indwelling Catheter Toilet # Voids 2 - Exam GENERAL EXAM: Reveals 69-year-old white male on room air in no distress HEAD: Normocephalic and atraumatic EYES: Normal reaction of pupils, equal size. NOSE: Clear with pink turbinates. THROAT: No erythema or exudates. NECK: No masses, no JVD. CHEST: No chest wall deformity. LUNGS: Diminished breath sound bilaterally no crackles rhonchi or wheezes CVS: S1 and S2 normal with no audible murmur, regular rhythm. No extra heart sounds ABDOMEN: No hepatosplenomegaly, active bowel sounds, no guarding or rigidity. SKIN: No rashes CENTRAL NERVOUS SYSTEM: Alert and oriented x 3 no gross focal deficit EXTREMITIES: No clubbing edema or cyanosis - Labs CBC & Chem 7: 07/11/24 12:01 07/11/24 12:01 Labs: Abnormal Lab Results - Last 24 Hours (Table) 07/10/24 07/10/24 07/11/24 Range/Units 16:13 20:09 05:46 WBC (4.50-10.00) 10*3/uL MCV (80.0-97.0) fL MCH (27.0-32.0) pg Neutrophils # (1.80-7.70) 10*3/uL Lymphocytes # (0.90-5.00) 10*3/uL Eosinophils # (0.04-0.35) 10*3/uL Sodium (137-145) mmol/L BUN (9-20) mg/dL Glucose (74-99) mg/dL POC Glucose (mg/dL) 119 H 142 H 134 H (70-110) mg/dL Alkaline Phosphatase (38-126) U/L 07/11/24 07/11/24 07/11/24 Range/Units 12:01 12:01 12:01 WBC 12.05 H (4.50-10.00) 10*3/uL MCV 97.5 H (80.0-97.0) fL MCH 33.0 H (27.0-32.0) pg Neutrophils # 10.92 H (1.80-7.70) 10*3/uL Lymphocytes # 0.59 L (0.90-5.00) 10*3/uL Eosinophils # 0.00 L (0.04-0.35) 10*3/uL Sodium 136 L 136 L (137-145) mmol/L BUN 42 H 43 H (9-20) mg/dL Glucose 118 H 120 H (74-99) mg/dL POC Glucose (mg/dL) (70-110) mg/dL Alkaline Phosphatase 37 L (38-126) U/L Microbiology - Last 24 Hours (Table) 07/09/24 01:15 Blood Culture - Preliminary Blood Assessment and Plan Assessment: Impression: Acute hypoxemic respiratory failure, secondary to acute systolic congestive heart failure and acute exacerbation of COPD Acute exacerbation of COPD Elevated troponins, rule out non-ST elevation MIHistory of legionnaires disease Former tobacco dependence Marijuana smoker History of seizure disorder, last reported seizure over 4 years ago Nonischemic cardiomyopathy and LV dysfunction Recommendation: Continue diuretics Continue bronchodilators Change methylprednisolone to prednisone 40 mg daily Cardiac catheterization report was noted and reviewed again no evidence of any coronary artery disease, his cardiomyopathy is nonischemic Continue statins aspirin Continue pantoprazole Patient will need outpatient follow-up for his underlying COPD and outpatient PFT. Will continue to follow Time with Patient: Less than 30
--- NOTE | 2024-07-11 14:04 | P.PN ---
Subjective Progress Note Date: 07/11/24 CHIEF COMPLAINT: Shortness of breath HISTORY OF PRESENT ILLNESS: This is a 69-year-old male who presented with worsening shortness of breath and cough. And being treated for CHF exacerbation and COPD exacerbation. Patient had mildly elevated troponin and underwent heart catheterization today with normal coronary arteries. Patient apparently had complained of one episode of epigastric pain. This pain has resolved after Tums. He is currently tolerating lunch. Surgical service consulted in regards to epigastric abdominal pain. PAST MEDICAL HISTORY: TIA, pneumonia, hepatitis C, PAST SURGICAL HISTORY: Adenoidectomy MEDICATIONS: See below ALLERGIES: See below SOCIAL HISTORY: No illicit drug use. REVIEW OF SYSTEMS: CONSTITUTIONAL: Denies fever or chills. HEENT: Denies blurred vision, vision changes, or eye pain. Denies hemoptysis CARDIOVASCULAR: Denies chest pain or pressure. RESPIRATORY: No shortness of breath. GASTROINTESTINAL: See HPI for pertinent findings HEMATOLOGIC: Denies bleeding disorders. GENITOURINARY: Denies any blood in urine or increased urinary frequency. SKIN: Denies pruitis. Denies rash. PHYSICAL EXAM: VITAL SIGNS: Reviewed GENERAL: Well-developed in no acute distress. HEENT: No sclera icterus. Extraocular movements grossly intact. Moist buccal mucosa. Head is atraumatic, normocephalic. No nasal drainage. ABDOMEN: Soft. Nondistended. Nontender NEUROLOGIC: Alert and oriented. Cranial nerves II through XII grossly intact. LABORATORY DATA: WBCs 12.05 Hgb 14.5 platelets 209 Sodium is 136 potassium 3.8 creatinine 0.93 lactic acid 1.6 total bilirubin 1.0 LFTs are normal alk phos 37 IMAGING: ASSESSMENT: 1. Epigastric abdominal pain resolved PLAN: - No surgical intervention planned - Continue regular diet - Medicine service has ordered a CT scan abdomen pelvis. Will follow-up on results. Physician Aerospace Technician note has been reviewed by physician. Signing provider agrees with the documented findings, assessment, and plan of care. Objective - Vital Signs Vital signs: Vital Signs Temp 98 F 07/11/24 11:19 Pulse 90 07/11/24 13:02 Resp 16 07/11/24 11:19 BP 105/64 07/11/24 13:02 Pulse Ox 91 L 07/11/24 11:19 FiO2 60 07/09/24 15:35 Intake & Output 0407/11/24 07/11/24 18:59 06:59 18:59 Intake Total 898 240 325 Output Total 1100 200 Balance -202 40 325 Weight 55.3 kg 53.4 kg Intake: IV 205 Invasive Line 1 10 Invasive Line 2 20 Oral 898 240 120 Output: Urine 1100 200 Uretheral (Bonilla) 450 Other: Voiding Method Indwelling Catheter Toilet # Voids 2 - Labs CBC & Chem 7: 07/11/24 12:01 07/11/24 12:01 Labs: Abnormal Lab Results - Last 24 Hours (Table) 07/10/24 07/10/24 07/11/24 Range/Units 16:13 20:09 05:46 WBC (4.50-10.00) 10*3/uL MCV (80.0-97.0) fL MCH (27.0-32.0) pg Neutrophils # (1.80-7.70) 10*3/uL Lymphocytes # (0.90-5.00) 10*3/uL Eosinophils # (0.04-0.35) 10*3/uL Sodium (137-145) mmol/L BUN (9-20) mg/dL Glucose (74-99) mg/dL POC Glucose (mg/dL) 119 H 142 H 134 H (70-110) mg/dL Alkaline Phosphatase (38-126) U/L 07/11/24 07/11/24 07/11/24 Range/Units 12:01 12:01 12:01 WBC 12.05 H (4.50-10.00) 10*3/uL MCV 97.5 H (80.0-97.0) fL MCH 33.0 H (27.0-32.0) pg Neutrophils # 10.92 H (1.80-7.70) 10*3/uL Lymphocytes # 0.59 L (0.90-5.00) 10*3/uL Eosinophils # 0.00 L (0.04-0.35) 10*3/uL Sodium 136 L 136 L (137-145) mmol/L BUN 42 H 43 H (9-20) mg/dL Glucose 118 H 120 H (74-99) mg/dL POC Glucose (mg/dL) (70-110) mg/dL Alkaline Phosphatase 37 L (38-126) U/L Microbiology - Last 24 Hours (Table) 07/09/24 01:15 Blood Culture - Preliminary Blood
[2024-07-11 16:27] LABS: Glucose,Whole Blood 99 mg/dL (70-110)
[2024-07-11 20:36] LABS: Glucose,Whole Blood 156 mg/dL (70-110)
[2024-07-12 05:47] LABS: Glucose,Whole Blood 100 mg/dL (70-110)
[2024-07-12 07:14] LABS: Basophils # (A) 0.01 10*3/uL (0.00-0.10); Basophils % (A) 0.1 %; HCT 41.7 % (39.6-50.0); HGB 14.1 g/dL (13.0-17.0); Lymphocytes # (A) 1.63 10*3/uL (0.90-5.00); Lymphocytes % (A) 14.1 %; MCH 32.9 pg (27.0-32.0); MCHC 33.8 g/dL (32.0-37.0); MCV 97.4 fL (80.0-97.0); Mean Platelet Volume 11.5 fL (9.5-12.2); Monocytes # (A) 0.98 10*3/uL (0.20-1.00); Monocytes % (A) 8.5 %; Neutrophils # (A) 8.87 10*3/uL (1.80-7.70); Platelet Count 200 10*3/uL (140-440); RBC 4.28 10*6/uL (4.40-5.60); RDW 14.3 % (11.5-14.5); WBC 11.53 10*3/uL (4.50-10.00)
[2024-07-12 07:37] LABS: African American GFR (CKD) >90 (>60 ml/min/1.73 sqM); Anion Gap 7 mmol/L; Blood Urea Nitrogen 34 mg/dL (9-20); Calcium 8.9 mg/dL (8.4-10.2); Carbon Dioxide 27 mmol/L (22-30); Chloride 103 mmol/L (98-107); Glucose 92 mg/dL (74-99); Non-African American GFR(CKD) >90 (>60 ml/min/1.73 sqM); Potassium 3.9 mmol/L (3.5-5.1); Sodium 137 mmol/L (137-145)
[2024-07-12] MEDS: IOPAMIDOL CONTRAST (ORAL USE) VIAL PO PRN (08:39)
[2024-07-12] MEDS: predniSONE 10 MG TAB PO SCH (08:40)
[2024-07-12] MEDS: FUROSEMIDE 20 MG TAB PO SCH (08:40)
--- NOTE | 2024-07-12 10:57 | CT ---
EXAMINATION TYPE: CT abdomen pelvis wo con DATE OF EXAM: 07/12/2024 10:39 AM COMPARISON: None. CLINICAL INDICATION: Male, 69 years old with history of Epigastric pain and tenderness; Epigastric pa in and tenderness TECHNIQUE: Axial CT abdomen pelvis wo con;Sagittal and coronal reformats were created on a separate workstation. Contrast used: mL of , (none if empty) Oral contrast used: with Oral Contrast (none if empty) CT DLP: 379.6 mGycm, Automated exposure control for dose reduction was used. FINDINGS: LOWER CHEST: Unremarkable streaky atelectasis in the lung bases. Small left pleural effusion present. There is associated atelectasis. ABDOMEN LIVER: Scattered probable hepatic cysts throughout the patient's liver. No follow-up recommended. GALLBLADDER AND BILE DUCTS: Unremarkable. PANCREAS: Scattered osseous lesions are within the parenchyma. SPLEEN: Unremarkable. ADRENAL GLANDS: Unremarkable. KIDNEYS AND URETERS: No evidence of hydronephrosis or obstructing renal calculus. The ureters are unr emarkable. PELVIS BLADDER: No evidence for wall thickening or mass given limitations of exam. REPRODUCTIVE: Prostate is enlarged in size measuring 5.2 cm in transverse dimension. ABDOMEN & PELVIS STOMACH AND BOWEL: No evidence of bowel obstruction. Oral contrast extends throughout the small bowel and cecum/ascending colon. Moderate to large amount stool in the colon. PERITONEUM/RETROPERITONEUM: No evidence of pneumoperitoneum or free fluid. VASCULATURE: Moderate atherosclerotic calcifications are present throughout the abdominal aorta and i ts branches. No evidence of aortic aneurysm. MUSCULOSKELETAL: No acute osseous abnormalities, L1 vertebral body defect in the central portion whic h extends from the superior and inferior endplate. There is compression deformity to T11 also present with up to 50% height loss anteriorly. No evidence for significant spinal canal stenosis. Multilevel degeneration changes with osteophyte formation facet joint arthropathy. LYMPH NODES: No gross evidence for lymphadenopathy. SOFT TISSUE/ABDOMINAL WALL: Unremarkable IMPRESSION: 1. Evidence of chronic pancreatitis. 2. 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 Consider MRI if this concern for acute compression fracture. 3. Small left pleural fusion with associated atelectasis. 4. Moderate to large amount of stool. 5. Prostatomegaly, correlate serum PSA. 6. Moderate to large amount stool in the colon. [facility], , 07/12/2024 10:54 AM
[2024-07-12 11:10] LABS: Glucose,Whole Blood 96 mg/dL (70-110)
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
--- NOTE | 2024-07-12 13:41 | P.PN ---
Subjective Progress Note Date: 07/12/24 SURGICAL PROGRESS NOTE CHIEF COMPLAINT: CHF and COPD exacerbation HISTORY OF PRESENT ILLNESS: Surgical service following in regards to patient's epigastric abdominal pain. Pain has resolved. He is tolerating regular diet. He is status post heart catheterization with normal coronary arteries. WBC is down from 12-11.5 lipase [address] scan abdomen pelvis reports evidence of chronic pancreatitis. Moderate to large amount of stool in the colon. Degenerative changes of the spine at T11 with compression deformity. PHYSICAL EXAM: VITAL SIGNS: Reviewed. GENERAL: Well-developed in no acute distress. ABDOMEN: Soft. Nondistended. Nontender. NEUROLOGIC: Alert and oriented. Cranial nerves II through XII grossly intact. ASSESSMENT: 1. Epigastric abdominal pain, resolved. CT scan showing evidence of chronic pancreatitis 2. Constipation with moderate to large amount of stool in colon noted on CT PLAN: -Continue heart healthy diet -Lactulose daily added for constipation -No surgical intervention planned Physician Tool Specialist note has been reviewed by physician. Signing provider agrees with the documented findings, assessment, and plan of care. Objective - Vital Signs Vital signs: Vital Signs Temp 97.7 F 07/12/24 11:14 Pulse 86 07/12/24 11:27 Resp 18 07/12/24 11:14 BP 121/75 07/12/24 11:14 Pulse Ox 93 L 07/12/24 11:14 FiO2 60 07/09/24 15:35 Intake & Output 07/11/24 07/12/24 07/12/24 18:59 06:59 18:59 Intake Total 325 380 360 Output Total 450 600 Balance -125 -220 360 Weight 53.6 kg Intake: IV 205 20 Invasive Line 1 10 Invasive Line 2 20 20 Oral 120 360 360 Output: Urine 450 600 Other: Voiding Method Toilet # Voids 2 - Labs CBC & Chem 7: 07/12/24 06:17 07/12/24 06:17 Labs: Abnormal Lab Results - Last 24 Hours (Table) 07/11/24 07/12/24 07/12/24 Range/Units 20:27 06:17 06:17 WBC 11.53 H (4.50-10.00) 10*3/uL RBC 4.28 L (4.40-5.60) 10*6/uL MCV 97.4 H (80.0-97.0) fL MCH 32.9 H (27.0-32.0) pg Neutrophils # 8.87 H (1.80-7.70) 10*3/uL Eosinophils # 0.00 L (0.04-0.35) 10*3/uL BUN 34 H (9-20) mg/dL POC Glucose (mg/dL) 156 H (70-110) mg/dL Microbiology - Last 24 Hours (Table) 07/09/24 01:15 Blood Culture - Preliminary Blood
--- NOTE | 2024-07-12 14:32 | P.PN ---
Subjective Progress Note Date: 07/12/24 History of Present Illness: The patient is a 69-year-old male with a known history of chronic obstructive lung disease, history of seizure and a prior history of smoking which he stopped about a year and a half ago who presented with worsening dyspnea, cough that got worse over the last 24 hours, quite severe and he felt dizzy. He had some chest discomfort that was worse with deep breathing and coughing. He came into the emergency room, severely dyspneic requiring BiPAP and his chest x-ray showed bi lateral infiltrate. He was in sinus mechanism. He feels better at the time of my evaluation. He denies any peripheral edema, PND or orthopnea. He denies any prior history of cardiac ischemia or CHF. His NT proBNP was elevated on presentation. Prior systolic function evaluation from 2018 showed a preserved systolic function. He had mild troponin elevation. Medications: Depakote Labs: Potassium 4.6, BUN 24, creatinine 0.92. Hemoglobin 17. NT proBNP 6980. Procalcitonin 0.08. Troponin 0.043, 0.046, 0.045. WBC 9.67. Chest x-ray with multifocal airspace, pneumonia versus congestion., Repeat chest x-ray shows improvement. EKG: Sinus mechanism rate of 101 occasional PVCs with nonspecific ST-T wave changes 07/10 Patient seen and examined on the on the cardiac stepdown unit. Patient denies chest pain, shortness of breath is improving and he is followed by pulmonary medicine. Blood pressure 101/45, pulse ox 94% on room air, heart rate 96-100. Repeat blood work reveals WBC 11.7, hemoglobin 14.7, potassium 3.8, BUN 34 creatinine 0.94. proBNP 2100. Echocardiogram reveals EF of 35%, mild to moderate MR, trace pericardial effusion. Results of the echocardiogram reviewed with the patient with recommendations for cardiac catheterization. Patient is agreeable to move forward with this and will be scheduled tomorrow. 07/12 Patient seen and examined. He states he slept well last night. He denies chest pain. He states he is ambulating to the bathroom without any problems. No chest pain, shortness of breath, lightheadedness or dizziness. Yesterday he underwent cardiac catheterization that showed normal coronary arteries. Cardiomyopathy is nonischemic. Blood pressure 121/75, heart rate 89, pulse ox 93% on 2 L nasal cannula. Repeat blood work reveals hemoglobin 14, BUN 34 creatinine 0.81 and potassium 3.9. Physical Examination: 69-year-old male on O2 by nasal cannula Head: Normocephalic. Eyes: Sclerae nonicteric. Neck: Good carotid upstroke, no bruit, no jugular venous distention. Lungs: Decreased breath sounds bilaterally, no wheezes Heart: Regular rate and rhythm, S1-S2, no S3, no rub. No murmur. Abdomen: Soft nontender, positive bowel sounds no organomegaly. Extremities: No edema, intact distal pulses. Impression: 1. Progressive dyspnea with probably exacerbation of COPD and fluid overload, baseline EF was normal in 2018 2. Mild troponin elevation, most likely type II myocardial infarction 3. Prior history of smoking 4. History of seizure 5. Cardiomyopathy with EF 35%, nonischemic Plan: 1. Treatment of COPD per pulmonary service 2. Continue Lasix oral 40 mg daily 3. Continue Farxiga 4. Add lisinopril 2.5 mg daily 5. Patient is cleared for discharge from cardiology. Plan is to maximize medical treatment as an outpatient. Patient will follow-up in the office with Dr. Gómez in 1 week. Nurse practitioner note has been reviewed, I agree with documented findings and plan of care. Patient was seen and examined. Objective - Vital Signs Vital signs: Vital Signs Temp 97.6 F 07/12/24 08:27 Pulse 95 07/12/24 08:27 Resp 18 07/12/24 08:27 BP 114/72 07/12/24 08:27 Pulse Ox 92 L 07/12/24 08:27 FiO2 60 07/09/24 15:35 Intake & Output 07/11/24 07/12/24 07/12/24 18:59 06:59 18:59 Intake Total 325 380 180 Output Total 450 600 Balance -125 -220 180 Weight 53.6 kg Intake: IV 205 20 Invasive Line 1 10 Invasive Line 2 20 20 Oral 120 360 180 Output: Urine 450 600 Other: Voiding Method Toilet - Labs CBC & Chem 7: 07/12/24 06:17 07/12/24 06:17 Labs: Abnormal Lab Results - Last 24 Hours (Table) 07/11/24 07/11/24 07/11/24 Range/Units 12:01 12:01 12:01 WBC 12.05 H (4.50-10.00) 10*3/uL RBC (4.40-5.60) 10*6/uL MCV 97.5 H (80.0-97.0) fL MCH 33.0 H (27.0-32.0) pg Neutrophils # 10.92 H (1.80-7.70) 10*3/uL Lymphocytes # 0.59 L (0.90-5.00) 10*3/uL Eosinophils # 0.00 L (0.04-0.35) 10*3/uL Sodium 136 L 136 L (137-145) mmol/L BUN 42 H 43 H (9-20) mg/dL Glucose 118 H 120 H (74-99) mg/dL POC Glucose (mg/dL) (70-110) mg/dL Alkaline Phosphatase 37 L (38-126) U/L 07/11/24 07/12/24 07/12/24 Range/Units 20:27 06:17 06:17 WBC 11.53 H (4.50-10.00) 10*3/uL RBC 4.28 L (4.40-5.60) 10*6/uL MCV 97.4 H (80.0-97.0) fL MCH 32.9 H (27.0-32.0) pg Neutrophils # 8.87 H (1.80-7.70) 10*3/uL Lymphocytes # (0.90-5.00) 10*3/uL Eosinophils # 0.00 L (0.04-0.35) 10*3/uL Sodium (137-145) mmol/L BUN 34 H (9-20) mg/dL Glucose (74-99) mg/dL POC Glucose (mg/dL) 156 H (70-110) mg/dL Alkaline Phosphatase (38-126) U/L Microbiology - Last 24 Hours (Table) 07/09/24 01:15 Blood Culture - Preliminary Blood
--- NOTE | 2024-07-12 14:40 | P.PN ---
Subjective Progress Note Date: 07/12/24 Principal diagnosis: Acute systolic congestive heart failure and acute exacerbation of COPD Patient is a 69-year-old male with past medical history significant for seizure disorder, COPD, Legionella pneumonia, and former tobacco dependence. Presented to the emergency department late last night in a state of severe respiratory distress. Placed on BiPAP. Workup in the ED including a chest x-ray showing diffuse bilateral pulmonary infiltrates, concerning for pneumonia versus pulmonary edema. CBC: WBC count 10, hemoglobin 17, platelets 225. CMP: Sodium 139, potassium 4.6, chloride 108, serum bicarb 21, BUN 24, creatinine 0.92, glucose 125. LFTs not elevated. Troponin elevated at 0.043. EKG: Sinus tachycardia, rate 101 bpm, nonspecific ST and T wave abnormalities. NT proBNP significantly elevated at 6980. Most recent available echocardiogram from 2018 showing a preserved left ventricular ejection fraction of 55%. Patient currently being evaluated emergency department, trauma bay 1. He remains on BiPAP with settings 10/5 and FiO2 100%. SpO2 reading 96% on bedside monitor. Patient appears nondistressed. No signs of CO2 narcosis. Reports increased work of breathing that developed over the last 24 to 48 hours. This occurs especially with any kind of exertion. Reports previous episodes of substernal nonradiating chest pain on exertion, but not currently. Associated productive cough. Denies any hemoptysis, fevers, or sick contacts. Endorses history of COPD. Previous heavy tobacco dependence, however, quit approximately 1-1/2 years ago. Continues to smoke marijuana. Afebrile. Received empiric dose of antibiotics in the ED including Rocephin and azithromycin. Current vital signs: Temperature 97.2 F, heart rate 99 bpm, blood pressure 128/70 mmHg, nontachypneic, SpO2 recorded at 96% on above-mentioned BiPAP settings. Patient is doing well today, seen on 07/10/2024, feeling better, breathing easier, he is actually on room air, remains on bronchodilators, remains on Lasix IV Lasix 40 mg daily patient is also on farxiga as per cardiology, scheduled to undergo cardiac catheterization tomorrow by Dr. Gómez, in the meantime he is n.p.o. after midnight. Patient was seen today on 07/11/2024, patient is doing well clinically except last night he had episodes of chest pain and the patient underwent cardiac catheterization today, he was found to have normal coronaries hence his symptoms of chest pain are not cardiac in nature, he was found to have moderate severe global hypokinesis. Hence his cardiomyopathy is not ischemic in nature, in the meantime he remains on diuretics for his initial presentation of congestive heart failure with drastic improvement noted on the chest x-ray with diuretics. He remains on diuretics Lasix 20 mg daily, remains on bronchodilators, and I am transitioning his methylprednisolone today to prednisone 50 mg daily for his underlying COPD. Patient was seen today on 07/12/2024, patient is doing much better, breathing a lot easier, hardly any pulmonary symptoms no cough no wheezing no shortness of breath, I believe the patient could be considered for discharge if cleared by other consultants mostly cardiology. For his cardiomyopathy patient is now on Lasix 40 mg daily, farxiga, and lisinopril was added 2.5 mg daily. Objective - Vital Signs Vital signs: Vital Signs Temp 97.7 F 07/12/24 11:14 Pulse 86 07/12/24 11:27 Resp 18 07/12/24 11:14 BP 121/75 07/12/24 11:14 Pulse Ox 93 L 07/12/24 11:14 FiO2 60 07/09/24 15:35 Intake & Output 07/11/24 07/12/24 07/12/24 18:59 06:59 18:59 Intake Total 325 380 360 Output Total 450 600 Balance -125 -220 360 Weight 53.6 kg Intake: IV 205 20 Invasive Line 1 10 Invasive Line 2 20 20 Oral 120 360 360 Output: Urine 450 600 Other: Voiding Method Toilet # Voids 2 - Exam GENERAL EXAM: Reveals 69-year-old white male on room air in no distress HEAD: Normocephalic and atraumatic EYES: Normal reaction of pupils, equal size. NOSE: Clear with pink turbinates. THROAT: No erythema or exudates. NECK: No masses, no JVD. CHEST: No chest wall deformity. LUNGS: Clear bilaterally no rhonchi no wheezes CVS: S1 and S2 normal with no audible murmur, regular rhythm. No extra heart sounds ABDOMEN: No hepatosplenomegaly, active bowel sounds, no guarding or rigidity. SKIN: No rashes CENTRAL NERVOUS SYSTEM: Alert and oriented x 3 no gross focal deficit EXTREMITIES: No clubbing edema or cyanosis - Labs CBC & Chem 7: 07/12/24 06:17 07/12/24 06:17 Labs: Abnormal Lab Results - Last 24 Hours (Table) 07/11/24 07/12/24 07/12/24 Range/Units 20:27 06:17 06:17 WBC 11.53 H (4.50-10.00) 10*3/uL RBC 4.28 L (4.40-5.60) 10*6/uL MCV 97.4 H (80.0-97.0) fL MCH 32.9 H (27.0-32.0) pg Neutrophils # 8.87 H (1.80-7.70) 10*3/uL Eosinophils # 0.00 L (0.04-0.35) 10*3/uL BUN 34 H (9-20) mg/dL POC Glucose (mg/dL) 156 H (70-110) mg/dL Microbiology - Last 24 Hours (Table) 07/09/24 01:15 Blood Culture - Preliminary Blood Assessment and Plan Assessment: Impression: Acute hypoxemic respiratory failure, secondary to acute systolic congestive heart failure and acute exacerbation of COPD Acute exacerbation of COPD Elevated troponins, rule out non-ST elevation MIHistory of legionnaires disease Former tobacco dependence Marijuana smoker History of seizure disorder, last reported seizure over 4 years ago Nonischemic cardiomyopathy and LV dysfunction Recommendation: Continue diuretics Continue bronchodilators Change prednisone to Medrol Dosepak does not need a long course of prednisone considering his main presentation was a cardiac presentation Cardiac catheterization report was noted and reviewed again no evidence of any coronary artery disease, his cardiomyopathy is nonischemic Continue statins aspirin Continue pantoprazole Cleared from my perspective for discharge. Will continue to follow Time with Patient: Less than 30
[2024-07-12] MEDS: LACTULOSE 20 GM/30 ML CUP PO SCH (15:56)
[2024-07-12 16:23] LABS: Glucose,Whole Blood 123 mg/dL (70-110)
[2024-07-12] MEDS: PANTOPRAZOLE 40 MG TABLET PO SCH (17:52)
[2024-07-12 20:20] LABS: Glucose,Whole Blood 108 mg/dL (70-110)
[2024-07-13 05:58] LABS: Glucose,Whole Blood 83 mg/dL (70-110)
[2024-07-13 08:13] VITALS: BP 111/67; TEMP 98
[2024-07-13] MEDS: methylPREDNISolone 4 MG TAB TAPER PO SCH (08:14)
[2024-07-13 09:34] VITALS: PULSE 91; RESP 18
--- NOTE | 2024-07-13 10:16 | P.PN ---
Subjective Progress Note Date: 07/13/24 Principal diagnosis: Chronic pancreatitis Patient doing well today. Denies abdominal pain. Had multiple smaller stools. Does not feel constipated. Tolerating diet. Objective - Vital Signs Vital signs: Vital Signs Temp 98.0 F 07/13/24 08:09 Pulse 91 07/13/24 09:58 Resp 18 07/13/24 09:58 BP 111/67 07/13/24 08:09 Pulse Ox 88 L 07/13/24 09:31 FiO2 60 07/09/24 15:35 Intake & Output 07/12/24 07/13/24 07/13/24 18:59 06:59 18:59 Intake Total 540 30 490 Balance 540 30 490 Weight 53.4 kg Intake: IV 30 10 Invasive Line 1 20 Invasive Line 3 10 10 Oral 540 480 Other: Voiding Method Toilet Toilet # Voids 2 1 - Exam Abdomen: Soft, nontender, nondistended - Labs CBC & Chem 7: 07/12/24 06:17 07/12/24 06:17 Labs: Abnormal Lab Results - Last 24 Hours (Table) 07/12/24 Range/Units 16:22 POC Glucose (mg/dL) 123 H (70-110) mg/dL Microbiology - Last 24 Hours (Table) 07/09/24 01:15 Blood Culture - Preliminary Blood Assessment and Plan (1) Chronic pancreatitis Narrative/Plan: Patient doing well at this time. Normal abdominal pain. Constipation improved. Continue regular diet. Continue stool softeners. Will sign off. Please reconsult if needed. Current Visit: Yes Status: Acute Code(s): K86.1 - OTHER CHRONIC PANCREATITIS SNOMED Code(s): 691956624
--- NOTE | 2024-07-13 13:10 | P.PN ---
Subjective Progress Note Date: 07/13/24 Principal diagnosis: Acute systolic congestive heart failure and acute exacerbation of COPD Patient is a 69-year-old male with past medical history significant for seizure disorder, COPD, Legionella pneumonia, and former tobacco dependence. Presented to the emergency department late last night in a state of severe respiratory distress. Placed on BiPAP. Workup in the ED including a chest x-ray showing diffuse bilateral pulmonary infiltrates, concerning for pneumonia versus pulmonary edema. CBC: WBC count 10, hemoglobin 17, platelets 225. CMP: Sodium 139, potassium 4.6, chloride 108, serum bicarb 21, BUN 24, creatinine 0.92, glucose 125. LFTs not elevated. Troponin elevated at 0.043. EKG: Sinus tachycardia, rate 101 bpm, nonspecific ST and T wave abnormalities. NT proBNP significantly elevated at 6980. Most recent available echocardiogram from 2018 showing a preserved left ventricular ejection fraction of 55%. Patient currently being evaluated emergency department, trauma bay 1. He remains on BiPAP with settings 10/5 and FiO2 100%. SpO2 reading 96% on bedside monitor. Patient appears nondistressed. No signs of CO2 narcosis. Reports increased work of breathing that developed over the last 24 to 48 hours. This occurs especially with any kind of exertion. Reports previous episodes of substernal nonradiating chest pain on exertion, but not currently. Associated productive cough. Denies any hemoptysis, fevers, or sick contacts. Endorses history of COPD. Previous heavy tobacco dependence, however, quit approximately 1-1/2 years ago. Continues to smoke marijuana. Afebrile. Received empiric dose of antibiotics in the ED including Rocephin and azithromycin. Current vital signs: Temperature 97.2 F, heart rate 99 bpm, blood pressure 128/70 mmHg, nontachypneic, SpO2 recorded at 96% on above-mentioned BiPAP settings. Patient is doing well today, seen on 07/10/2024, feeling better, breathing easier, he is actually on room air, remains on bronchodilators, remains on Lasix IV Lasix 40 mg daily patient is also on farxiga as per cardiology, scheduled to undergo cardiac catheterization tomorrow by Dr. Gómez, in the meantime he is n.p.o. after midnight. Patient was seen today on 07/11/2024, patient is doing well clinically except last night he had episodes of chest pain and the patient underwent cardiac catheterization today, he was found to have normal coronaries hence his symptoms of chest pain are not cardiac in nature, he was found to have moderate severe global hypokinesis. Hence his cardiomyopathy is not ischemic in nature, in the meantime he remains on diuretics for his initial presentation of congestive heart failure with drastic improvement noted on the chest x-ray with diuretics. He remains on diuretics Lasix 20 mg daily, remains on bronchodilators, and I am transitioning his methylprednisolone today to prednisone 50 mg daily for his underlying COPD. Patient was seen today on 07/12/2024, patient is doing much better, breathing a lot easier, hardly any pulmonary symptoms no cough no wheezing no shortness of breath, I believe the patient could be considered for discharge if cleared by other consultants mostly cardiology. For his cardiomyopathy patient is now on Lasix 40 mg daily, farxiga, and lisinopril was added 2.5 mg daily. Patient is doing great, hardly any pulmonary symptoms no cough no wheezing no shortness of breath. Seen today on 07/13/2024, I believe his discharge was delayed by general surgery on the case to further evaluate his abdominal CT and pelvis, today the patient has no complaints whatsoever. And he is going to be discharged home. Again no cough no wheezing no shortness of breath. Objective - Vital Signs Vital signs: Vital Signs Temp 98.0 F 07/13/24 08:09 Pulse 91 07/13/24 09:58 Resp 18 07/13/24 09:58 BP 111/67 07/13/24 08:09 Pulse Ox 88 L 07/13/24 09:31 FiO2 60 07/09/24 15:35 Intake & Output 07/12/24 07/13/24 07/13/24 18:59 06:59 18:59 Intake Total 540 30 490 Balance 540 30 490 Weight 53.4 kg Intake: IV 30 10 Invasive Line 1 20 Invasive Line 3 10 10 Oral 540 480 Other: Voiding Method Toilet Toilet # Voids 2 1 - Exam GENERAL EXAM: Reveals 69-year-old white male on room air in no distress HEAD: Normocephalic and atraumatic EYES: Normal reaction of pupils, equal size. NOSE: Clear with pink turbinates. THROAT: No erythema or exudates. NECK: No masses, no JVD. CHEST: No chest wall deformity. LUNGS: Clear bilaterally no rhonchi no wheezes CVS: S1 and S2 normal with no audible murmur, regular rhythm. No extra heart sounds ABDOMEN: No hepatosplenomegaly, active bowel sounds, no guarding or rigidity. SKIN: No rashes CENTRAL NERVOUS SYSTEM: Alert and oriented x 3 no gross focal deficit EXTREMITIES: No clubbing edema or cyanosis - Labs CBC & Chem 7: 07/12/24 06:17 07/12/24 06:17 Labs: Abnormal Lab Results - Last 24 Hours (Table) 07/12/24 Range/Units 16:22 POC Glucose (mg/dL) 123 H (70-110) mg/dL Microbiology - Last 24 Hours (Table) 07/09/24 01:15 Blood Culture - Preliminary Blood Assessment and Plan Assessment: Impression: Acute hypoxemic respiratory failure, secondary to acute systolic congestive heart failure and acute exacerbation of COPD Acute exacerbation of COPD Elevated troponins, rule out non-ST elevation MIHistory of legionnaires disease Former tobacco dependence Marijuana smoker History of seizure disorder, last reported seizure over 4 years ago Nonischemic cardiomyopathy and LV dysfunction Recommendation: Continue diuretics Continue bronchodilators Medrol Dosepak Cardiac catheterization report was noted, patient has nonischemic cardiomyopathy Continue statins aspirin Continue pantoprazole Cleared again for discharge Patient can see me for follow-up on outpatient basis regarding his pulmonary status. Time with Patient: Less than 30
--- NOTE | 2024-07-13 13:53 | P.PN ---
Subjective HISTORY OF PRESENT ILLNESS: The patient is a 69-year-old male with a known history of chronic obstructive lung disease, history of seizure and a prior history of smoking which he stopped about a year and a half ago who presented with worsening dyspnea, cough that got worse over the last 24 hours, quite severe and he felt dizzy. He had some chest discomfort that was worse with deep breathing and coughing. He came into the emergency room, severely dyspneic requiring BiPAP and his chest x-ray showed bilateral infiltrate. He was in sinus mechanism. He feels better at the time of my evaluation. He denies any peripheral edema, PND or orthopnea. He denies any prior history of cardiac ischemia or CHF. His NT proBNP was elevated on presentation. Prior systolic function evaluation from 2018 showed a preserved systolic function. He had mild troponin elevation. Medications: Depakote Labs: Potassium 4.6, BUN 24, creatinine 0.92. Hemoglobin 17. NT proBNP 6980. Procalcitonin 0.08. Troponin 0.043, 0.046, 0.045. WBC 9.67. Chest x-ray with multifocal airspace, pneumonia versus congestion., Repeat chest x-ray shows improvement. EKG: Sinus mechanism rate of 101 occasional PVCs with nonspecific ST-T wave changes 07/10 Patient seen and examined on the on the cardiac stepdown unit. Patient denies chest pain, shortness of breath is improving and he is followed by pulmonary medicine. Blood pressure 101/45, pulse ox 94% on room air, heart rate 96-100. Repeat blood work reveals WBC 11.7, hemoglobin 14.7, potassium 3.8, BUN 34 cr eatinine 0.94. proBNP 2100. Echocardiogram reveals EF of 35%, mild to moderate MR, trace pericardial effusion. Results of the echocardiogram reviewed with the patient with recommendations for cardiac catheterization. Patient is agreeable to move forward with this and will be scheduled tomorrow. 07/12 Patient seen and examined. He states he slept well last night. He denies chest pain. He states he is ambulating to the bathroom without any problems. No chest pain, shortness of breath, lightheadedness or dizziness. Yesterday he underwent cardiac catheterization that showed normal coronary arteries. Cardiomyopathy is nonischemic. Blood pressure 121/75, heart rate 89, pulse ox 93% on 2 L nasal cannula. Repeat blood work reveals hemoglobin 14, BUN 34 creatinine 0.81 and potassium 3.9. 07/13/2024 Patient examined this morning at bedside. Patient currently denies chest pain or pressure. He denies shortness of breath. Vital signs are stable. He is hoping to be discharged home today. PHYSICAL EXAM: VITAL SIGNS: Reviewed. GENERAL: Well-developed in no acute distress. NECK: Supple. No JVD or thyromegaly LUNGS: Respirations even and unlabored. Lungs essentially clear to auscultation bilaterally. HEART: Regular rate and rhythm. S1 and S2 heard. EXTREMITIES: Normal range of motion. No clubbing or cyanosis. Peripheral pulses intact. No lower extremity edema ASSESSMENT: 1. Progressive dyspnea with probably exacerbation of COPD and fluid overload, baseline EF was normal in 2018 2. Mild troponin elevation, type II myocardial infarction 3. Prior history of smoking 4. History of seizure 5. Cardiomyopathy with EF 35%, nonischemic 6. Status post cardiac catheterization revealing normal coronary arteries PLAN: Continue current cardiac medications including Aldactone, aspirin, Farxiga, Lipitor, lisinopril, Lasix, and metoprolol Patient is stable for discharge home today from a cardiac standpoint Patient to follow-up postdischarge in the office with Dr. Gómez Nurse practitioner note has been reviewed by physician. Signing provider agrees with the documented findings, assessment, and plan of care documented by [employer] as a scribe. Objective - Vital Signs Vital signs: Vital Signs Temp 98.0 F 07/13/24 08:09 Pulse 91 07/13/24 09:58 Resp 18 07/13/24 09:58 BP 111/67 07/13/24 08:09 Pulse Ox 88 L 07/13/24 09:31 FiO2 60 07/09/24 15:35 Intake & Output 07/12/24 07/13/24 07/13/24 18:59 06:59 18:59 Intake Total 540 30 490 Balance 540 30 490 Weight 53.4 kg Intake: IV 30 10 Invasive Line 1 20 Invasive Line 3 10 10 Oral 540 480 Other: Voiding Method Toilet Toilet # Voids 2 1 - Labs CBC & Chem 7: 07/12/24 06:17 07/12/24 06:17 Labs: Abnormal Lab Results - Last 24 Hours (Table) 07/12/24 Range/Units 16:22 POC Glucose (mg/dL) 123 H (70-110) mg/dL Microbiology - Last 24 Hours (Table) 07/09/24 01:15 Blood Culture - Preliminary Blood
--- NOTE | 2024-07-13 17:50 | P.PN ---
Subjective Progress Note Date: 07/12/24 60 years old male with past medical history of multiple medical problems including COPD. He presents because of dyspnea for 3 days duration patient with no chest pain with no coughing or phlegm No specific GI/ symptom. No headache dizziness weakness numbness Patient is complaining however from dysuria. He has diarrhea for 2 days. He is currently on BiPAP with a settings of 12/9 with FiO2 of 30%. Objective - Vital Signs Vital signs: Vital Signs Temp 97.7 F 07/12/24 11:14 Pulse 86 07/12/24 11:27 Resp 18 07/12/24 11:14 BP 121/75 07/12/24 11:14 Pulse Ox 93 L 07/12/24 11:14 FiO2 60 07/09/24 15:35 Intake & Output 07/11/24 07/12/24 07/12/24 18:59 06:59 18:59 Intake Total 325 380 180 Output Total 450 600 Balance -125 -220 180 Weight 53.6 kg Intake: IV 205 20 Invasive Line 1 10 Invasive Line 2 20 20 Oral 120 360 180 Output: Urine 450 600 Other: Voiding Method Toilet - Exam GENERAL: The patient is alert and oriented x3, not in any acute distress. Well developed, well nourished. HEENT: Pupils are round and equally reacting to light. EOMI. No scleral icterus. No conjunctival pallor. Normocephalic, atraumatic. No pharyngeal erythema. No thyromegaly. CARDIOVASCULAR: S1 and S2 present. No murmurs, rubs, or gallops. -PULMONARY: Chest is clear to auscultation, n bilateral scattered wheezing , no crackles. -ABDOMEN: Soft, epigastric tenderness, nondistended, normoactive bowel sounds. No palpable organomegaly. MUSCULOSKELETAL: No joint swelling or deformity. EXTREMITIES: No cyanosis, clubbing, or pedal edema. NEUROLOGICAL: Gross neurological examination did not reveal any focal deficits. SKIN: No rashes. no petechiae. - Labs CBC & Chem 7: 07/12/24 06:17 07/12/24 06:17 Labs: Abnormal Lab Results - Last 24 Hours (Table) 07/11/24 07/12/24 07/12/24 Range/Units 20:27 06:17 06:17 WBC 11.53 H (4.50-10.00) 10*3/uL RBC 4.28 L (4.40-5.60) 10*6/uL MCV 97.4 H (80.0-97.0) fL MCH 32.9 H (27.0-32.0) pg Neutrophils # 8.87 H (1.80-7.70) 10*3/uL Eosinophils # 0.00 L (0.04-0.35) 10*3/uL BUN 34 H (9-20) mg/dL POC Glucose (mg/dL) 156 H (70-110) mg/dL Microbiology - Last 24 Hours (Table) 07/09/24 01:15 Blood Culture - Preliminary Blood Assessment and Plan Assessment: Acute CHF, unknown ejection fraction acute COPD exacerbation Acute hypoxic respiratory failure secondary to above Epigastric pain and tenderness Acute urinary retention status post Bonilla catheter placed in the emergency room Plan: Continue with oral Lasix Continue with IV Solu-Medrol Continue Zithromax for COPD treatment Plan for cardiac cath on 07/[address] of the abdomen and surgery team consult Bronchodilator Pulmonary consult Cards team consult Labs and medication were reviewed.. Continue same treatment. Continue with symptomatic treatment. Resume home medication. Monitor labs and vitals. DVT and GI prophylaxis. Further recommendations as per clinical course of the patient DVT prophylaxis: heparin GI Prophylaxis: Protonix Prognosis is guarded
--- NOTE | 2024-07-13 17:52 | P.DS ---
Providers Date of admission: 07/09/24 00:58 Expected date of discharge: 07/13/24 Attending physician: Geraldo Coley MD Consults: 07/09/24 01:07 Consult Physician Routine Consulting Provider: Filiberto Prieto Consult Reason/Comments: Bipap patient Do you want consulting provider notified?: Yes 07/09/24 02:46 Consult Physician Urgent Consulting Provider: Mark Dean Consult Reason/Comments: elevated troponins Do you want consulting provider notified?: Yes Primary care physician: Shirin Smallpox Hospital Course: This is a pleasant 60 years old male with past medical history of multiple medical problems including COPD. He presents because of dyspnea for 3 days duration patient with no chest pain with no coughing or phlegm No specific GI/ symptom. No headache dizziness weakness numbness Patient is complaining however from dysuria. He has diarrhea for 2 days. He is currently on BiPAP with a settings of 12 with FiO2 of 30%. Acute CHF, unknown ejection fraction acute COPD exacerbation Acute hypoxic respiratory failure secondary to above Epigastric pain and tenderness Acute urinary retention status post Bonilla catheter placed in the emergency room Continue with oral Lasix Continue with IV Solu-Medrol Continue Zithromax for COPD treatment Plan for cardiac cath on 07/[address] of the abdomen and surgery team consult Bronchodilator Pulmonary consult Cards team consult Labs and medication were reviewed.. Continue same treatment. Continue with symptomatic treatment. Resume home medication. Monitor labs and vitals. DVT and GI prophylaxis. Further recommendations as per clinical course of the patient DVT prophylaxis: heparin GI Prophylaxis: Protonix Prognosis is guarded 07/11 Patient still mildly tachypneic but no chest pain Patient is going for cardiac cath today because troponin mildly elevated He is currently kept on IV Solu-Medrol 60 mg for his acute COPD and oral Lasix 40 mg once daily. He is saturating 91% on 2 L oxygen via nasal cannula Overnight started complaining from epigastric pain and tenderness and indigestion, his pain about 5/10 going to his chest. Also he had frequent bowel movement 3 this morning but states there is no diarrhea and they are normal. Labs from today are pending. Yesterday were unremarkable. Will order CT of the abdomen pelvis with oral contrast only as patient is going for cardiac cath and may need another contrast. Repeat labs and check lactic acid lipase and liver function test. Consider con surgery consult. 07/12/2024, patient is doing much better, breathing a lot easier, hardly any pulmonary symptoms no cough no wheezing no shortness of breath, I believe the patient could be considered for discharge if cleared by other consultants mostly cardiology. For his cardiomyopathy patient is now on Lasix 40 mg daily, farxiga, and lisinopril was added 2.5 mg daily. Patient is doing great, hardly any pulmonary symptoms no cough no wheezing no shortness of breath. 07/13/2024, his discharge was delayed by general surgery on the case to further evaluate his abdominal CT and pelvis, today the patient has no complaints whatsoever. And he is going to be discharged home. Again no cough no wheezing no shortness of breath. --Patient is stable for Patient Condition at Discharge: Fair Plan - Discharge Summary Discharge Rx Participant: Yes New Discharge Prescriptions: New Spironolactone [Aldactone] 25 mg PO DAILY 30 Days #30 tab Aspirin 81 mg PO DAILY tab Dapagliflozin Propanediol [Farxiga] 10 mg PO DAILY 30 Days #30 tab Tamsulosin [Flomax] 0.4 mg PO PC-SUPPER 30 Days #30 cap Atorvastatin [Lipitor] 40 mg PO HS 30 Days #30 tab predniSONE 50 mg PO DAILY 5 Days #5 tablet Budesonide [Pulmicort] 1 mg INHALATION RT-BID 30 Days #1 ml lisinopriL [Zestril] 2.5 mg PO DAILY 30 Days #30 tab Lactulose [Cephulac] 30 gm PO DAILY 25 Days #900 ml Furosemide [Lasix] 20 mg PO DAILY 30 Days #30 tab Pantoprazole [Protonix] 40 mg PO AC-BID 30 Days #60 tab Metoprolol Succinate (ER) [Toprol XL] 25 mg PO DAILY 30 Days #30 tab Continue Divalproex ER [Depakote ER] 1,000 mg PO BID Discharge Medication List Divalproex ER [Depakote ER] 1,000 mg PO BID 06/27/22 [History] Aspirin 81 mg PO DAILY tab 07/13/24 [Rx] Atorvastatin [Lipitor] 40 mg PO HS 30 Days #30 tab 07/13/24 [Rx] Budesonide [Pulmicort] 1 mg INHALATION RT-BID 30 Days #1 ml 07/13/24 [Rx] Dapagliflozin Propanediol [Farxiga] 10 mg PO DAILY 30 Days #30 tab 07/13/24 [Rx] Furosemide [Lasix] 20 mg PO DAILY 30 Days #30 tab 07/13/24 [Rx] Lactulose [Cephulac] 30 gm PO DAILY 25 Days #900 ml 07/13/24 [Rx] Metoprolol Succinate (ER) [Toprol XL] 25 mg PO DAILY 30 Days #30 tab 07/13/24 [Rx] Pantoprazole [Protonix] 40 mg PO AC-BID 30 Days #60 tab 07/13/24 [Rx] Spironolactone [Aldactone] 25 mg PO DAILY 30 Days #30 tab 07/13/24 [Rx] Tamsulosin [Flomax] 0.4 mg PO PC-SUPPER 30 Days #30 cap 07/13/24 [Rx] lisinopriL [Zestril] 2.5 mg PO DAILY 30 Days #30 tab 07/13/24 [Rx] predniSONE 50 mg PO DAILY 5 Days #5 tablet 07/13/24 [Rx] Follow up Appointment(s)/Referral(s): Gaurang Gómez MD [STAFF PHYSICIAN] - 1 Week Shirin Abraham MD [Primary Care Provider] - 1-2 days Patient Instructions/Handouts: Heart Failure (DC), COPD (Chronic Obstructive Pulmonary Disease) (DC), After Radial Heart Catheterization (GEN) Activity/Diet/Wound Care/Special Instructions: CARDIAC CATH Watch for any excessive bruising, active bleeding, a firm knot forming under your skin, extreme tenderness and signs of infection (redness, swelling, fever). Shower daily, do not soak puncture in a tub bath, jacuzzi, pool, gonzalez etc. for 1 week. This is to prevent risk of infection. Take all medications as directed. Never stop any new medication without your physicians OK. No driving for 2 days after procedure. 5- pound weight lifting restriction for 1 week. Low sodium/low fat diet. Activity limited until follow up appointment with your flagman. In case of any problems, please call [facility] [place] @ [phone] CHF Weigh yourself every morning after you urinate. If you gain 2-3 pounds overnight or 5 pounds in one week, call your primary physician for guidance on your medications. Keep a log of your weights. Avoid salt, or foods with hidden salt. Extra salt makes your heart work harder and traps the fluid in your body for longer. Take all of your medications as directed, especially your water pills. NEVER skip a dose. Elevate your legs when you are not up moving around to help with circulation and prevent swelling. Call your physician if you notice any extra swelling in your legs, ankles, feet or abdomen, if you have a new dry cough, if your shortness of breath worsens with activity or at rest, or if you feel more fatigued Healthy LifeStyle It is important to keep a heart healthy lifestyle. This can improve your long- term health and decrease your risk for heart attacks. -Managing your blood cholesterol, blood pressure, weight, and stress. -The importance of regular exercise. -Heart Healthy Diet: Include more plants in your diet. Eat lots of fresh vegetables and fresh fruits. Eat good fats: plant based oils, avocado, nuts, beans, legumes. Eat more seafood. Limit Meat. Switch to whole grains. -Avoid fried foods and animal fats and processed meats NEW MEDICATIONS ASPIRIN- Reduces risk for heart attack and stroke. LIPITOR (ATORVASTATIN)- reduces levels of triglycerides and "bad" cholesterol in blood, while increasing "good" levels. TOPROL XL (METOPROLOL SUCCINATE) is used to relax blood vessels and slows heart rate to improve blood flow and reduce blood pressure. ALDACTONE (SPIRONOLACTONE)- is a potassium sparing diuretic, that blocks the effects of aldosterone, this hormone causes the body to retain salt and water. FARXIGA (DAPAGLIFLOZIN)- is used to block reabsorption of sodium and glucose in the kidneys, which helps reduce fluid retention. This improves the hearts ability to pump blood, reducing strain on the heart. LISINOPRIL-is used to lower blood pressure, increase the supply of blood and oxygen to the heart. It promotes salt excretion increasing renal blood flow and reducing the production of aldosterone and antidiuretic hormones. LASIX (FUROSEMIDE)- is a diuretic that reduces fluid retention, and decreases work load on heart. FLOMAX (TAMSULOSIN)- relaxes muscles in the prostate and bladder which help improve urine flow and reduce risk of urinary retention. Discharge Disposition: HOME SELF-CARE
--- NOTE | 2024-07-16 09:14 | CDI ---
Documentation Clarification Form Date: 07/16/2024 08:59:11 AM From: Jasmine James Admit Date: 07/09/2024 12:58:00 AM Patient Name: Jas Escobar Visit Number: [id number] Discharge Date: 07/13/2024 01:22:00 PM ATTENTION: The Clinical Documentation Specialists (CDI) and [facility] Coding Staff appreciate your assistance in clarifying documentation. Please respond to the clarification below the line at the bottom and electronically sign. The CDI & [facility] Coding staff will review the response and follow-up if needed. Please note: Queries are made part of the Legal Health Record. If you have any questions, please contact the author of this message via ITS. Doctor/Provider: Shelby Carter Type 2 AR is documented as likely per cardiology consult and PN's. Cardiollogy last PN 07/13 documents mild troponin elevation, type II myocardial infarcation. [insert date, location]. Additional clarification regarding the etiology of the Type 2 AR is requested. Patient History/Risk Factors: CHF, AECOPD, NI cardiomyopathy, personal history of smoking. Cardiac cath normal coronary arteries. Clinical Indicators: Troponin: .043, .046, .045 EKG Results: Left Ventricular hypertrophy Treatment: Cardiac cath, Echo with doppler, Aspirin, Heparin, Lasix Please clarify if patient had Type II AR and cause. [ ] Type 2 AR due to CHF [ ] Type 2 AR due AECOPD [ ] Type 2 AR due to cardiomyopathy [ ] Type 2 AR due to acute respiratory failure [ ] Type 2 AR ruled out [ ] Type 2 AR due to other (please specify ) [ @@ ] Unable to determine [ ] Other Condition, please specify MTDD
--- NOTE | 2024-07-29 12:30 | CDI ---
Documentation Clarification Form Date: 07/16/2024 08:59:11 AM From: Jasmine James Admit Date: 07/09/2024 12:58:00 AM Patient Name: Jas Escobar Visit Number: [id number] Discharge Date: 07/13/2024 01:22:00 PM ATTENTION: The Clinical Documentation Specialists (CDI) and [facility] Coding Staff appreciate your assistance in clarifying documentation. Please respond to the clarification below the line at the bottom and electronically sign. The CDI & [facility] Coding staff will review the response and follow-up if needed. Please note: Queries are made part of the Legal Health Record. If you have any questions, please contact the author of this message via ITS. Doctor/Provider: Rico Lopez Type 2 OH is documented as likely per you in consult and PN's. Cardiollogy last PN 07/13 documents mild troponin elevation, type II myocardial infarcation. Additional clarification regarding the etiology of the Type 2 OH is requested. Patient History/Risk Factors: CHF, AECOPD, NI cardiomyopathy, personal history of smoking. Cardiac cath normal coronary arteries. Clinical Indicators: Troponin: .043, .046, .045 EKG Results: Left Ventricular hypertrophy Treatment: Cardiac cath, Echo with doppler, Aspirin, Heparin, Lasix Please clarify if patient had Type II OH and cause. [ ] Type 2 OH due to CHF [ ] Type 2 OH due AECOPD [ ] Type 2 OH due to cardiomyopathy [ xx ] Type 2 OH due to acute respiratory failure [ ] Type 2 OH ruled out [ ] Type 2 OH due to other (please specify ) [ ] Unable to determine [ ] Other Condition, please specify MTDD
--- NOTE | 2024-07-30 09:21 | CDI ---
Documentation Clarification Form Date: 07/16/2024 08:59:11 AM From: Jasmine James Admit Date: 07/09/2024 12:58:00 AM Patient Name: Jas Escobar Visit Number: [id number] Discharge Date: 07/13/2024 01:22:00 PM ATTENTION: The Clinical Documentation Specialists (CDI) and [facility] Coding Staff appreciate your assistance in clarifying documentation. Please respond to the clarification below the line at the bottom and electronically sign. The CDI & [facility] Coding staff will review the response and follow-up if needed. Please note: Queries are made part of the Legal Health Record. If you have any questions, please contact the author of this message via ITS. Doctor/Provider: Rico Lopez Type 2 NE is documented as likely per you in consult and PN's. Cardiollogy last PN 07/13 documents mild troponin elevation, type II myocardial infarcation. Additional clarification regarding the etiology of the Type 2 NE is requested. Patient History/Risk Factors: CHF, AECOPD, NI cardiomyopathy, personal history of smoking. Cardiac cath normal coronary arteries. Clinical Indicators: Troponin: .043, .046, .045 EKG Results: Left Ventricular hypertrophy Treatment: Cardiac cath, Echo with doppler, Aspirin, Heparin, Lasix Please clarify if patient had Type II NE and cause. [ ] Type 2 NE due to CHF [ xx ] Type 2 NE due AECOPD [ ] Type 2 NE due to cardiomyopathy [ ] Type 2 NE due to acute respiratory failure [ ] Type 2 NE ruled out [ ] Type 2 NE due to other (please specify ) [ ] Unable to determine [ ] Other Condition, please specify MTDD
== END 2024-07-13 13:22 | disposition home or self-care (01) | DRG 280 ==
LOC: EC 22:27 → 2SICU 07-09 00:58 → 3SCARD 07-09 08:35
PROVIDERS: ADMIT Internal Medicine; ATTEND Internal Medicine
PROC: 5A09357 Assistance with Respiratory Ventilation, Less than 24 Consecutive Hours, Continuous Positive Airway Pressure (ICD-10-PCS; 2024-07-09)
PROC: B2111ZZ Fluoroscopy of Multiple Coronary Arteries using Low Osmolar Contrast (ICD-10-PCS; principal; 2024-07-11 10:30)
PROC: 4A023N7 Measurement of Cardiac Sampling and Pressure, Left Heart, Percutaneous Approach (ICD-10-PCS; principal; 2024-07-11 10:30)
DX: I50.21 Acute systolic (congestive) heart failure (principal); J96.01 Acute respiratory failure with hypoxia; I21.A1 Myocardial infarction type 2; I16.1 Hypertensive emergency; J44.1 Chronic obstructive pulmonary disease with (acute) exacerbation; E11.9 Type 2 diabetes mellitus without complications; G40.909 Epilepsy, unspecified, not intractable, without status epilepticus; I42.8 Other cardiomyopathies; K86.1 Other chronic pancreatitis; R33.9 Retention of urine, unspecified; R19.7 Diarrhea, unspecified; F41.9 Anxiety disorder, unspecified; K59.00 Constipation, unspecified; Z79.82 Long term (current) use of aspirin; Z79.84 Long term (current) use of oral hypoglycemic drugs; Z86.73 Personal history of transient ischemic attack (TIA), and cerebral infarction without residual deficits; Z79.899 Other long term (current) drug therapy; Z87.891 Personal history of nicotine dependence
CPT/HCPCS: 36415; 51702; 71045; 74176; 80048; 80053; 80076; 83605; 83690; 83735; 83880; 84145; 84484; 85025; 85610; 85730; 87040; 87449; 87636; 93005; 93306; 93458; 94640; 94660; 94760; 96361; 96365; 96375; 96376; 99291